=== PATIENT | female | born 2000 | race Caucasian/White ===

== ENCOUNTER 2022-12-02 17:51 | Emergency (ER) | payer OTHER, SELFPAY ==
[2022-12-02 17:55] VITALS: BP 113/72; PULSE 90; RESP 18; TEMP 37.2; O2SAT 99; BMI 25.7
--- NOTE | 2022-12-02 18:05 | PC.NURSE ---
pt points to the lower left back / buttock area, denies pain radiating down left leg
--- NOTE | 2022-12-02 18:06 | ED.BACK1 ---
HPI - Back Pain/Injury General Chief Complaint: Back Pain/Injury Stated Complaint: LOWER BACK PAIN LT SIDE Time Seen by Provider: 12/02/22 18:03 Source: patient Mode of arrival: walk-in History of Present Illness HPI Narrative: 22-year-old female presents for left lower back pain. She's had it for a few days and it doesn't radiate. No dysuria or hematuria or right-sided pain. She doesn't recall any unusual activity and there was no trauma. She's had back issues in the past. She had a muscle relaxer home that she took. Related Data Previous Rx's Medication Instructions Recorded acetaminophen 300 mg-codeine 30 mg 1 tab PO Q6H PRN pain 5 days #20 12/02/22 tablet tabs ibuprofen 800 mg tablet 800 mg PO Q8H PRN pain #20 tabs 12/02/22 methocarbamol 750 mg tablet 750 mg PO Q8H #20 tabs 12/02/22 Allergies Allergy/AdvReac Type Severity Reaction Status Date / Time No Known Drug Allergies Allergy Verified 12/02/22 17:55 Review of Systems ROS Narrative A ten point review of systems is negative except as noted above. Exam Narrative Exam Narrative: Nurses note and vital signs reviewed and patient is not hypoxic. General: The patient appears mildly uncomfortable Skin: Warm, dry, no pallor noted. There is no rash noted including on her back. Head: Normocephalic, atraumatic Eye: Normal conjunctiva, no drainage Ears, Nose, Mouth, and Throat: oral mucosa is moist. Nares patent. Cardiovascular: Regular Rate and Rhythm Respiratory: Patient is in no distress, no accessory muscle use, lungs are clear to auscultation, no wheezing, rales or rhonchi Back: non-tender, no CVA tenderness bilaterally to percussion. GI: soft and nontender Musculoskeletal: The patient has no evidence of calf tenderness, no pitting edema, symmetrical pulses noted bilaterally Neurological: A&O, normal speech Psychiatric: Cooperative Constitutional Vital Signs, click to edit/add: Last Vital Signs Temp 99.0 F 12/02/22 17:55 Pulse 90 12/02/22 17:55 Resp 18 12/02/22 17:55 BP 113/72 12/02/22 17:55 Pulse Ox 99 12/02/22 17:55 O2 Del Method Room Air 12/02/22 18:07 Course Vital Signs Vital signs: Vital Signs Temperature 99.0 F 12/02/22 17:55 Pulse Rate 90 12/02/22 17:55 Respiratory Rate 18 12/02/22 17:55 Blood Pressure 113/72 12/02/22 17:55 Pulse Oximetry 99 12/02/22 17:55 Oxygen Delivery Method Room Air 12/02/22 17:55 Temperature 99.0 F 12/02/22 17:55 Pulse Rate 90 12/02/22 17:55 Respiratory Rate 18 12/02/22 17:55 Blood Pressure 113/72 12/02/22 17:55 Pulse Oximetry 99 12/02/22 17:55 Oxygen Delivery Method Room Air 12/02/22 18:07 MDM - Back Pain/Injury MDM Narrative Medical decision making narrative: she was given IM Toradol and Norflex and seems to be feeling improved. She'll be discharged home and treated symptomatically. Treatment diagnosis and follow-up were discussed with the patient. My clinical impression is that this is muscle pain. X-rays are not indicated. Discharge Plan Discharge Chief Complaint: Back Pain/Injury Clinical Impression: Low back pain Patient Disposition: Home, Self-Care Time of Disposition Decision: 18:39 Condition: Good Mode of Transportation: Private Vehicle Prescriptions / Home Meds: New ibuprofen 800 mg tablet 800 mg PO Q8H PRN (Reason: pain) Qty: 20 0RF methocarbamol 750 mg tablet 750 mg PO Q8H Qty: 20 0RF acetaminophen-codeine 300-30 mg tablet 1 tab PO Q6H PRN (Reason: pain) 5 Days Qty: 20 0RF Instructions: Back Pain (ED) Stand Alone Forms: Portal Instructions Referrals: Vladimir Parnell MD [Primary Care Provider] - 1 week
[2022-12-02] MEDS: KETOROLAC TROMETHAMINE 60 MG/2 ML VIAL IM (18:18)
[2022-12-02] MEDS: ORPHENADRINE 60 MG/ 2 ML VIAL IM (18:19)
== END 2022-12-02 19:01 | disposition home or self-care (01) ==
PROVIDERS: Emergency Provider Emergency Medicine; PCP Family Medicine
DX: M54.50 Low back pain, unspecified (principal)
CPT/HCPCS: 96372; 99284

== ENCOUNTER 2022-12-06 10:29 | Outpatient (OUT) | payer OTHER, SELFPAY ==
--- NOTE | 2022-12-06 10:50 | XR_ITS ---
The [address] [address] Patient Name: MELCHOR VERA MRN: [id number] date: 2000 Sex: F Assigned Patient Location: LAB Current Patient Location: LAB Accession/Order Number: [id number] Exam Date: 12/06/2022 10:57 Report Date: 12/06/2022 13:37 At the request of: RICHMOND STANLEY Procedure: XR lumbar spine 2-3V EXAMINATION: XR lumbar spine 2-3V HISTORY: Lumbar strain S39.012A ; chronic low back pain COMPARISON: No relevant comparison available. FINDINGS: BONES: Suspect pars defects bilaterally at L5. Normal height and alignment of the vertebral bodies. DISC SPACES: Mild/moderate narrowing L5-S1. PARASPINOUS: Negative. No paraspinous abnormality is seen. OTHER: Negative. XR/XR lumbar spine 2-3V IMPRESSION: 1. L5-S1 disc space narrowing and suspected L5 bilateral pars interarticularis defects. No other defects are likely congenital, they can cause irritation. Consider CT or MRI of the lumbar spine for confirmation. Electronically authenticated by: CELINA CARY Date: 12/06/2022 13:37
[2022-12-06 11:24] LABS: Basophils Percent Auto 0.6 % (0.2-2.0); Eosinophils Absolute Auto 0.1 10^3/uL (0.0-0.7); Eosinophils Percent Auto 1.7 % (0.9-7.0); Hematocrit 36.9 % (36.0-48.0); Immature Granulocytes Abs Auto 0.01 10^3/uL (0.00-0.03); Immature Granulocytes Pct Auto 0.2 % (0.0-0.5); Lymphocytes Absolute Auto 1.7 10^3/uL (1.2-3.8); Lymphocytes Percent Auto 36.1 % (20.5-60.0); Mean Corpuscular HGB Conc 32.5 g/dL (29.9-35.2); Mean Corpuscular Hemoglobin 31.3 pg (26.7-34.0); Mean Corpuscular Volume 96.3 fL (81.0-99.0); Mean Platelet Volume 10.5 fL (9.5-13.5); Monocytes Absolute Auto 0.3 10^3/uL (0.3-0.8); Monocytes Percent Auto 7.2 % (1.7-12.0); Neutrophils Absolute Auto 2.6 10^3/uL (1.4-6.5); Neutrophils Percent Auto 54.2 % (43.0-75.0); Platelet Count 174 10^3/uL (150-450); Red Blood Count 3.83 10^6/uL (4.20-5.40); Red Cell Distribution Width 12.2 % (11.0-15.0); White Blood Count 4.7 10^3/uL (4.0-11.0)
[2022-12-06 11:58] LABS: Estimated Average Glucose 85 mg/dL; Glycohemoglobin A1C 4.6 % (4.5-6.2)
[2022-12-06 12:36] LABS: Alanine Aminotransferase 24 U/L (14-59); Albumin Globulin Ratio 1.1; Albumin Level 3.8 g/dL (3.4-5.0); Alkaline Phosphatase 33 U/L (46-116); Anion Gap 11.8; Aspartate Amino Transferase 21 U/L (15-37); BUN Creatinine Ratio 15.9; Bilirubin Total 0.3 mg/dL (0.2-1.0); Calcium 8.5 mg/dL (8.5-10.1); Carbon Dioxide 28.4 mmol/L (21.0-32.0); Chloride 107 mmol/L (98-107); Chol HDL Ratio 3.7; Cholesterol 161 mg/dL (<=200); Estimated GFR (African America >60 (>=60); Estimated GFR (Non-African Ame >60 (>=60); Free T3 2.72 pg/mL (2.18-3.98); Globulin 3.4 g/dL; Glucose 87 mg/dL (74-106); HDL Cholesterol 44 mg/dL (40-60); Potassium 4.2 mmol/L (3.5-5.1); Sodium 143 mmol/L (136-145); Thyroid Stimulating Hormone 2.004 uIU/mL (0.358-3.740); Total Protein 7.2 g/dL (6.4-8.2); Triglycerides 105 mg/dL (<=150)
[2022-12-07 11:09] LABS: Insulin 11.8 uIU/mL (2.6-24.9)
== END 2022-12-06 10:30 | disposition home or self-care (01) ==
LOC: LAB 10:33
PROVIDERS: PCP Family Medicine; Visit Provider Family Medicine
DX: Z00.00 Encounter for general adult medical examination without abnormal findings (principal); S39.012A Strain of muscle, fascia and tendon of lower back, initial encounter; R73.09 Other abnormal glucose; E78.5 Hyperlipidemia, unspecified
CPT/HCPCS: 36415; 72100; 80053; 80061; 83036; 83525; 84436; 84443; 84481; 85025

== ENCOUNTER 2022-12-19 08:25 | Outpatient (OUT) | payer OTHER, SELFPAY ==
--- NOTE | 2022-12-19 08:33 | MR_ITS ---
The [address] [address] Patient Name: MELCHOR VERA MRN: [facility]:[id number] date: 2000 Sex: F Assigned Patient Location: MRI Current Patient Location: MRI Accession/Order Number: [id number] Exam Date: 12/19/2022 09:00 Report Date: 12/19/2022 11:48 At the request of: RICHMOND STANLEY Procedure: MR lumbar spine wo con EXAM: MR lumbar spine without contrast, 12/19/2022. COMPARISON: Lumbar spine x-rays from 12/06/2022. HISTORY: Lumbar spine pain for one month. Possible L5 pars defects on x-rays. TECHNIQUE: Multiplanar and multisequence imaging of the lumbar spine was performed without contrast. FINDINGS: No acute fracture is identified. There is mild disc height loss and disc desiccation at L3-L4 and L4-L5. There is a relatively small disc space at L5-S1 on a congenital basis. No convincing L5 pars defects are identified by MRI. There is no bone marrow edema in the region of the L5 pars interarticularis. No acute abnormality is identified involving visualized intrapelvic or intra-abdominal structures. The visualized aorta is normal in diameter. The upper sacrum is intact. The conus terminates at the superior aspect of T12. L5-S1: There is no focal disc herniation. There is no central or foraminal stenosis. L4-L5: There is a broad-based disc protrusion which is more pronounced in the central and right paracentral region measuring 7 mm in AP dimension. This results in effacement of the thecal sac and mild to moderate central narrowing with the thecal sac measuring 8 mm in AP dimension. There is severe lateral recess narrowing on the right and moderate lateral recess narrowing on the left with minimal foraminal narrowing. L3-L4: There is a broad-based disc protrusion measuring 7 mm in AP dimension resulting in effacement of the thecal sac and mild central narrowing with the thecal sac measuring 9 mm in AP dimension. There is moderate to marked lateral recess narrowing on the right and moderate lateral recess narrowing on the left without significant foraminal stenosis. L2-L3: There is no focal disc herniation. There is no central or foraminal stenosis. L1-L2: There is no focal disc herniation. There is no central or foraminal stenosis. MR/MR lumbar spine wo con IMPRESSION: 1. There is a large broad-based disc protrusion at L4-L5 asymmetric to the right resulting in mild to moderate central narrowing and severe right and moderate left lateral recess narrowing with suspected abutment of the right and possibly left L5 nerve roots. 2. There is also a 7 mm broad-based disc protrusion at L3-L4 resulting in mild central narrowing as well as moderate to marked lateral recess narrowing on the right and moderate lateral recess narrowing on the left. 3. No acute fracture. No convincing L5 pars defects. There is no spondylolisthesis. Electronically authenticated by: MEJIA RAGLAND Date: 12/19/2022 11:48
== END 2022-12-19 08:26 | disposition home or self-care (01) ==
LOC: MRI 08:26
PROVIDERS: PCP Family Medicine; Visit Provider Family Medicine
DX: S39.012A Strain of muscle, fascia and tendon of lower back, initial encounter (principal); M51.26 Other intervertebral disc displacement, lumbar region
CPT/HCPCS: 72148

== ENCOUNTER 2023-05-29 16:05 | Outpatient (OUT) | payer OTHER, SELFPAY ==
--- NOTE | 2023-05-29 16:10 | XR_ITS ---
The [address] [address] Patient Name: MELCHOR VERA MRN: [id number] date: 2000 Sex: F Assigned Patient Location: RAD Current Patient Location: RAD Accession/Order Number: [id number] Exam Date: 05/29/2023 16:12 Report Date: 05/29/2023 16:49 At the request of: RICHMOND STANLEY Procedure: XR chest 2V EXAM: XR chest 2V HISTORY: chest wall pain R07.89 on the left intermittently for the past year. COMPARISON: None. TECHNIQUE: Upright PA and lateral chest x-ray FINDINGS: The heart is not enlarged and the vasculature is not distended. No acute infiltrate, effusion or pneumothorax is identified. The osseous structures are grossly intact. XR/XR chest 2V IMPRESSION: No acute infiltrate or evidence of cardiac decompensation. Direct comparison with a previous study may be helpful in determining the chronicity of these findings. Electronically authenticated by: ALEXANDRE BUI Date: 05/29/2023 16:49
== END 2023-05-29 16:06 | disposition home or self-care (01) ==
LOC: RAD 16:06
PROVIDERS: PCP Family Medicine; Visit Provider Family Medicine
DX: R07.89 Other chest pain (principal)
CPT/HCPCS: 71046

== ENCOUNTER 2023-11-18 20:34 | Outpatient (REF) | payer OTHER, SELFPAY ==
[2023-11-22 08:13] LABS: Age Gdln ACOG Testing Note (.); IGP, rfx Aptima HPV ASCU Note (.)
== END 2023-11-18 20:35 | disposition home or self-care (01) ==
LOC: LAB 20:34
PROVIDERS: PCP Family Medicine; Visit Provider Physician Assistant
DX: Z01.419 Encounter for gynecological examination (general) (routine) without abnormal findings (principal)
CPT/HCPCS: 88175

== ENCOUNTER 2023-12-13 07:17 | Outpatient (OUT) | payer OTHER, SELFPAY ==
--- OUTSIDE RECORDS SUMMARY | 2023-12-13 07:20 | XMS_ITS | CCD ---
Author Organization [facility] Care Team Providers Care Iron Cutter Name Role Phone PHYSICIAN, DEFAULT Admitting Unavailable PHYSICIAN, DEFAULT Attending Unavailable PHYSICIAN, DEFAULT Admitting Unavailable PHYSICIAN, DEFAULT Attending Unavailable JADEN, DR FRAGOSO Primary Care Unavailable ERICH, DR CLEVELAND Consulting Unavailable ERICH, DR CLEVELAND Admitting Unavailable ERICH, DR CLEVELAND Attending Unavailable RICHMOND PARNELL Referring Unavailable ANURADHA FINK Attending Unavailable KYLE, RACHEL Attending Unavailable Problems Active Problems Problem Classification Problem Date Documented Da te Episodic/Chronic Unclassified (2 sources) COUGH, UNSPECIFIED; Translations: [COUGH, UNSPECIFIED] Onset: 04-03-2021 Unclassified (1 source) CONTACT W/AND (SUSP) EXPOS COVID-19; Translations: [CONTACT W/AND (SUSP) EXPOS COVID-19] Onset: 04-03-2021 Past or Other Problems Problem Classification Problem Date Documented Da te Episodic/Chronic Other upper respiratory infections (1 source) Acute upper respiratory infection, unspecified; Translations: [ACUTE UP RESPIRATORY INFECTION UNS] Onset: 04-03-2021 Episodic Unclassified (1 source) COUGH, UNSPECIFIED; Translations: [COUGH, UNSPECIFIED] Onset: 03-29-2021 Results Test Name Value Interpretation Reference Range Facil itlucinda CNOVon 02-27-2023 CNOV Office Visit (SPMESH ) JANNIE GU Nolan ([id number]) 4 F Date Time Provider Department 02/27/23 8:00 AM ANURADHA FINK SPMESH During your visit today, we recorded the following information about you: Temperature Pulse Blood pressure Weight 99.5 degrees 81/minute 104/67 81.5 kg Anuradha Fink, 03/27/2023 7:39 AM Signed [facility] - Medical Spine Initial Exam SUBJECTIVE HISTORY OF PRESENT ILLNESS: Jannie Gu is a 22 year old female who presents with a chief complaint of low back pain and is seen in consultation requested by Dr. Richmond Parnell for an opinion regarding low back pain. My final recommendations will be communicated back to the requesting physician by way of shared medical record or letter via US mail. Pain first began 5-6 years ago from not lifting properly she thinks. With 2 months of worsening without precipitating event. Overall some days better than others. Went to ER - lower left side of back, sharp pain. ([facility] 12/06/22). Now pain is up and down thoracolumbar spine midline and bilateral described as dull-aching, up to mid thoracic/scapula level worse on left. The worst pain is midline from thoracolumbar to lumbosacral region. Denies radicular component Occasionally will have to sit down because she feels like she's going to fall. Stating legs can get weak. Usually when upright. Intermittently. Improved with sitting. Denies numbness/tingling. Denies bowel/bladder incontinence or saddle anesthesia. The pain is currently 6-7/10. The pain can get to 9-10/10 at the highest and 2-3/10 at the lowest. Pain Radiation: As above Aggravating Factors: Bending + lifting, twisting, sometimes walking or standing for too long or sitting for too long Alleviating Factors: Stretching, heating pad Pain Ratio: worst pain is midline from thoracolumbar to lumbosacral region Current Treatment: Medications Intermittently Tizanidine - was working better than robaxin Diclofenac daily, previously ibuprofen 800mg Tylenol #3 - once or twice a week depending on pain intensity. 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 Higher percentile rankings indicate better function/quality of life. 50th percentile is the average of the general population and indicates half of respondents had a worse score. Depression Screening: PHQ-9 Self-Harm (Item 9) response options: 0 Not at all 1 Several days 2 More than half the days 3 Nearly every day PHQ-9 Levels: 0-4 No - mild depression 5-9 Mild depression 10-14 Moderate depression 15-19 Moderately severe depression 20-27 Severe depression There is no problem list on file for this patient. No past medical history on file. No past surgical history on file. Social History Tobacco Use Smoking status: Never Smokeless tobacco: Never Substance Use Topics Alcohol use: Not Currently No family history on file. ALLERGIES No Known Allergies CURRENT MEDICATIONS: acetaminophen-codeine (TYLENOL-COD #3) 300-30 mg per tablet TAKE 1 TABLET BY MOUTH EVERY 6 HOURS FOR 5 DAYS NEEDED FOR PAIN diclofenac, EC, (VOLTAREN) 75 mg EC tablet Take 1 tablet by mouth every 12 hours. ibuprofen (MOTRIN) 800 mg tablet Take 800 mg by mouth every 8 hours as needed. BLISOVI FE 03/30, 28, 1 mg-20 mcg (21)/75 mg (7) per tablet Take 1 tablet by mouth every morning. methocarbamol (ROBAXIN) 750 mg tablet Take 750 mg by mouth. tiZANidine (ZANAFLEX) 4 mg tablet Take 8 mg by mouth daily at bedtime. REVIEW OF SYSTEMS: 14 systems reviewed and otherwise negative unless mentioned above. OBJECTIVE: PHYSICAL EXAM BP 104/67 Pulse 81 Temp 37.5 ?C (99.5 ?F) (Temporal) Wt 81.5 kg (179 lb 10.8 oz) SpO2 100% GENERAL APPEARANCE: Well nourished, well developed, and no apparent distress. NEURO PSYCH: Patient oriented to person, place, and time. Mood pleasant. Benign affect. CARDIOVASCULAR: Palpable pulses. No edema noted. RESPIRATORY: non-labored breathing, no grunting/flaring/retra ctions (more content not included)... Normal [facility] CULTURE THROATon 03-29-2021 CULTURE THROAT Isolate 1 Haemophilus influenzae Moderate growth of Normal [facility] Comment on above: Result Comment: Beta lactamase positive Performed By: #### S SCRN, THRTCX #### [facility] [address], [place] [address] Dr. Denise Ernandez Covid-19 PCR (CVDTB)on 03-11 SARS-CoV-2 (COVID-19) RNA CAROL+probe Ql (Unsp spec) Not detected Normal NOT DETECTED [facility] Comment on above: Result Comment: This test is not yet gonzález roved or cleared by the [place] FDA. When there are no FDA-approved or cleared tests available, and other criteria are met, FDA can make tests available under an emergency access mechanism called an Emergency Use Authorization (EUA). The EUA for this test is supported by the Legal Coordinator of Health and Human Service's (HHS's) declaration that circumstances exist to justify the emergency use of in vitro diagnostics for the detection and/or diagnosis of the virus that causes COVID-19. This EUA will remain in effect (meaning this test can be used) for the duration of the COVID-19 declaration justifying emergency of IVDs, unless it is terminated or revoked by FDA (after which the test may no longer be used). When diagnostic testing is negative, the possibility of a false negative should be considered in the context of a patient's recent exposures and the presence of clinical signs and symptoms consistent with SARS-CoV-2. Performed By: #### C VDTBH #### [facility] [address], [place] [address] Dr. Denise Ernandez STREPT SCREENon 03-29-2021 STREP SCREEN A Negative Normal NEGATIVE [facility] Comment on above: Performed By: #### SSCRN, THRTCX #### [facility] [address], [place] [address] Dr. Denise Ernandez Encounters Encounter Date Encounter Type Care Provider Facility Start: 11-18-2023 End: 11-18-2023 ambulatory RACHEL WRIGHT Not Available Start: 02-27-2023 End: 02-27-2023 ambulatory RICHMOND PARNELL Facility:[facility] Start: 03-29-2021 End: 03-29-[address] RICHMOND PARNELL Facility: Start: 06-19-2018 End: 06-20-2018 Patient encounter procedure DEFAULT PHYSICIAN Facility:[facility] Start: 06-17-2018 End: 06-18-2018 Patient encounter procedure DEFAULT PHYSICIAN Facility:[facility] Payers Date Payer Category Payer Unknown [id number] 2002 Unknown [id number] 2002 Unknown [id number] 2002 Unknown [id number] 1965 Unknown [id number] 1959 Private Health Insurance [id number] 1959 Unknown [id number] Unknown Progress note 02-27-2023 Note Date & Type Note Facility 02-27-2023 Note HNO ID: [id number] Author: ANURADHA FINK, DO Service: ? Author Type: Physician Type: Progress Notes Filed: 03/27/2023 07:39 Note Text: [facility] - Medical Spine Initial Exam SUBJECTIVE HISTORY OF PRESENT ILLNESS: Jannie Gu is a 22 year old female who presents with a chief complaint of low back pain and is seen in consultation requested by Dr. Richmond Parnell for an opinion regarding low back pain. My final recommendations will be communicated back to the requesting physician by way of shared medical record or letter via US mail. Pain first began 5-6 years ago from not lifting properly she thinks. With 2 months of worsening without precipitating event. Overall some days better than others. Went to ER - lower left side of back, sharp pain. ([facility] 12/06/22). Now pain is up and down thoracolumbar spine midline and bilateral described as dull-aching, up to mid thoracic/scapula level worse on left. The worst pain is midline from thoracolumbar to lumbosacral region. Denies radicular component Occasionally will have to sit down because she feels like she's going to fall. Stating legs can get weak. Usually when upright. Intermittently. Improved with sitting. Denies numbness/tingling. Denies bowel/bladder incontinence or saddle anesthesia. The pain is currently 6-7/10. The pain can get to 9-10/10 at the highest and 2-3/10 at the lowest. Pain Radiation: As above Aggravating Factors: Bending + lifting, twisting, sometimes walking or standing for too long or sitting for too long Alleviating Factors: Stretching, heating pad Pain Ratio: worst pain is midline from thoracolumbar to lumbosacral region Current Treatment: Medications Intermittently Tizanidine - was working better than robaxin Diclofenac daily, previously ibuprofen 800mg Tylenol #3 - once or twice a week depending on pain intensity. 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 Higher percentile rankings indicate better function/quality of life. 50th percentile is the average of the general population and indicates half of respondents had a worse score. Depression Screening: PHQ-9 Self-Harm (Item 9) response options: 0 Not at all 1 Several days 2 More than half the days 3 Nearly every day PHQ-9 Levels: 0-4 No - mild depression 5-9 Mild depression 10-14 Moderate depression 15-19 Moderately severe depression 20-27 Severe depression There is no problem list on file for this patient. No past medical history on file. No past surgical history on file. Social History Tobacco Use Smoking status: Never Smokeless tobacco: Never Substance Use Topics Alcohol use: Not Currently No family history on file. ALLERGIES No Known Allergies CURRENT MEDICATIONS: acetaminophen-codeine (TYLENOL-COD #3) 300-30 mg per tablet TAKE 1 TABLET BY MOUTH EVERY 6 HOURS FOR 5 DAYS NEEDED FOR PAIN diclofenac, EC, (VOLTAREN) 75 mg EC tablet Take 1 tablet by mouth every 12 hours. ibuprofen (MOTRIN) 800 mg tablet Take 800 mg by mouth every 8 hours as needed. BLISOVI FE 03/30, 28, 1 mg-20 mcg (21)/75 mg (7) per tablet Take 1 tablet by mouth every morning. methocarbamol (ROBAXIN) 750 mg tablet Take 750 mg by mouth. tiZANidine (ZANAFLEX) 4 mg tablet Take 8 mg by mouth daily at bedtime. REVIEW OF SYSTEMS: 14 systems reviewed and otherwise negative unless mentioned above. OBJECTIVE: PHYSICAL EXAM BP 104/67 Pulse 81 Temp 37.5 ?C (99.5 ?F) (Temporal) Wt 81.5 kg (179 lb 10.8 oz) SpO2 100% GENERAL APPEARANCE: Well nourished, well developed, and no apparent distress. NEURO PSYCH: Patient oriented to person, place, and time. Mood pleasant. Benign affect. CARDIOVASCULAR: Palpable pulses. No edema noted. RESPIRATORY: non-labored breathing, no grunting/flaring/retractions SKIN: Head, neck, trunk, and extremities dry, intact and without lesions. MUSCULOSKELETAL VISUAL INSPECTION Posture: normal posture and alignment PALPATION: No tenderness to palpation thoracic/lumbar spine SPINE ROM: LUMBAR ROM: Full ROM Without Pain CERVICAL (more content not included)... [facility] Progress note 01-23-2023 Note Date & Type Note Facility 01-23-2023 Note HNO ID: [id number] Author: Chayito Hinton PA-C Service: ? Author Type: Physician Link Trainer Mechanic Type: Progress Notes Filed: 01/23/2023 9:52 PM Note Text: Per Triage: Jannie Gu is a 22 year old female that requests evaluation of spine. Per review, they have symptoms of lower back pain, mid back pain. Difficulty walking. Weakness Request: 1st available Referring provider: Richmond Parnell Patient out of state: no 2nd opinion: no Prior spine surgery: no CMT: Diclofenac Tizanidine Studies (Reports unless indicated) MRI lumbar spine report 12/19/22: Large broad-based disc herniation at L4-5,asymmetric to the right resulting in mild to moderate central canal stenosis and severe right and moderate left lateral recess stenosis. 7 mm broad-based disc protrusion at L3-4 resulting in mild central narrowing and well as marked lateral recess stenosis on the right and moderate on the left Disposition: Based on triage, recommend patient be scheduled with medical spine interventionalist for a trial of spine injections,PT, membrane stabilizer If patient would like sooner appointment, is it okay to offer appointment with spine surgical GONZÁLEZ No (If patient is okay to see first available surgeon, please specify dx to aid in appropriate scheduling, such as ?cervical degenerative disease,? ?scoliosis?) If VV, please advise pt to send or upload relevant outside images prior to appt so they will be available for review during the appt If office visit, please advise pt to hand carry relevant images on CD to the appt so they can be reviewed during the appt Chayito Hinton PA-C [facility] Progress note 01-22-2023 Note Date & Type Note Facility 01-22-2023 Note HNO ID: [id number] Author: Jone Martin Service: ? Author Type: ? Type: Progress Notes Filed: 01/23/2023 9:52 PM Note Text: Patient name: Jannie Gu Are you being referred by a [facility] Provider or Pain Management Provider at [facility]? No If answer is YES please schedule directly with surgeon, triage does not need to be completed. Is this a self-referral No If not, who is the Referring Provider Richmond Parnell Is this a 2nd opinion? No Were you offered surgery? No MRI/CT/myelogram within 12 months? Yes If NO , please refer to medical spine or PCP to complete above imaging, triage does not need to be completed If YES,? please ask for the name/address of the facility where the MRI/CT/myelogram was completed: [facility] Address: [address] [place] [address] MRI/CT/myelogram viewable in Epic: No If not, please provide [phone] to fax in imaging reports for review. Also, please inform patient to hand carry imaging disc to appointment. XR (spine) within 12 months: Yes If YES,? please ask for the name/address of the facility where the XR was completed: Same Dr. [place]'s patients: Have you had previous EMG/Nerve Conduction Study, Ultrasound, or MRI for these same symptoms? If YES,? please ask for the name/address of the facility where they were completed: Requested provider (First and Last name): [facility] Are you interested in a virtual visit if offered? No 1. Where are you having symptoms related to this visit? LBP Mid back pain Back pain Yes Leg pain No Arm pain No Neck pain No 2. Are you having any of the following symptoms: Difficulty walking Yes some weakness on occasion Numbness No Weakness Yes Trouble using your hands? No 3. Have you had any injections or physical therapy in the last 12 months? No If YES then please ask for the name/address of the facility where the injections and/or physical therapy was completed Have you tried any other kinds of non-surgical treatments in the last 12 months? (For example: NSAIDS, muscle relaxants, analgesics, oral steroids, Chiropractor, Acupuncture): Diclofenac Tizanidine 4. Are you currently taking daily prescribed narcotic medications for your current symptoms (For example Oxycodone, Hydrocodone, Tramadol, Morphine, Other)? No 5. Have you had previous spinal surgery for this same symptoms? No If YES? please ask for the name of facility/address of where the surgery was completed: Additional Comments [facility] Summary Purpose Family History No Family History Records FoundNo Family History Records FoundNo Family History Records FoundNo Family History Records Found Advance Directives No Advanced Directives Records FoundNo Advanced Directives Records FoundNo Advanced Directives Records FoundNo Advanced Directives Records Found Additional Source Comments INFORMATION SOURCE (unrecogn ized section and content) DATE CREATED AUTHOR 06/20/2018 [facility] DATE CREATED AUTHOR AUTHOR'S ORGANIZ ATION 08/23/2021 [facility] DATE CREATED AUTHOR AUTHOR'S ORGANIZ ATION 03/28/2023 [facility] DATE CREATED AUTHOR AUTHOR'S ORGANIZ ATION 11/19/[address] [facility] EPIC FOR RECORDS PERTAINING TO PATIENTS WHO ARE OR HAVE BEEN ENROLLED IN A CHEMICAL DEPENDENCY/SUBSTANCEABUSE PROGRAM, SOME INFORMATION MAY BE OMITTED. This clinical summary was aggregated from multiple sources. Caution should be exercised in using it in the provision of clinical care. This summary normalizes information from multiple sources, and as a consequence, information in this document may materially change the coding, format and clinical context of patient data. In addition, data may be omitted in some cases. CLINICAL DECISIONS SHOULD BE BASED ON THE PRIMARY CLINICAL RECORDS. [facility] provides no warranty or guarantee of the accuracy or completeness of information in this document.
[2023-12-13 07:36] LABS: Basophils Percent Auto 0.4 % (0.2-2.0); Eosinophils Percent Auto 0.7 % (0.9-7.0); Hematocrit 36.1 % (36.0-48.0); Hemoglobin 12.1 g/dL (12.0-16.0); Immature Granulocytes Abs Auto 0.01 10^3/uL (0.00-0.03); Immature Granulocytes Pct Auto 0.2 % (0.0-0.5); Lymphocytes Absolute Auto 1.5 10^3/uL (1.2-3.8); Lymphocytes Percent Auto 27.5 % (20.5-60.0); Mean Corpuscular HGB Conc 33.5 g/dL (29.9-35.2); Mean Corpuscular Hemoglobin 31.2 pg (26.7-34.0); Mean Platelet Volume 9.6 fL (9.5-13.5); Monocytes Absolute Auto 0.2 10^3/uL (0.3-0.8); Monocytes Percent Auto 4.1 % (1.7-12.0); Neutrophils Absolute Auto 3.8 10^3/uL (1.4-6.5); Neutrophils Percent Auto 67.1 % (43.0-75.0); Platelet Count 217 10^3/uL (150-450); Red Blood Count 3.88 10^6/uL (4.20-5.40); Red Cell Distribution Width 12.3 % (11.0-15.0); White Blood Count 5.6 10^3/uL (4.0-11.0)
[2023-12-13 08:25] LABS: Estimated Average Glucose 100 mg/dL; Glycohemoglobin A1C 5.1 % (4.5-6.2)
[2023-12-13 08:37] LABS: Alanine Aminotransferase 50 U/L (14-59); Albumin Globulin Ratio 1.1; Albumin Level 3.5 g/dL (3.4-5.0); Alkaline Phosphatase 54 U/L (46-116); Aspartate Amino Transferase 24 U/L (15-37); BUN Creatinine Ratio 17.3; Bilirubin Total 0.2 mg/dL (0.2-1.0); Calcium 8.7 mg/dL (8.5-10.1); Chloride 105 mmol/L (98-107); Chol HDL Ratio 3.1; Cholesterol 170 mg/dL (<=200); Estimated GFR (African America >60 (>=60 mL/min/1.73m^2); Estimated GFR (Non-African Ame >60 (>=60 mL/min/1.73m^2); Free T3 2.47 pg/mL (2.18-3.98); Globulin 3.1 g/dL; Glucose 105 mg/dL (74-106); HDL Cholesterol 55 mg/dL (40-60); LDL Cholesterol Calculated 96.8 mg/dL; Potassium 3.5 mmol/L (3.5-5.1); Sodium 138 mmol/L (136-145); Thyroid Stimulating Hormone 0.922 uIU/mL (0.358-3.740); Total Protein 6.6 g/dL (6.4-8.2); Triglycerides 91 mg/dL (<=150); VLDL CHOLESTEROL 18.2 mg/dL
[2023-12-13 08:57] LABS: Anion Gap 14.4; Carbon Dioxide 22.1 mmol/L (21.0-32.0)
[2023-12-14 08:13] LABS: Insulin 14.6 uIU/mL (2.6-24.9)
== END 2023-12-13 07:18 | disposition home or self-care (01) ==
LOC: LAB 07:18
PROVIDERS: PCP Family Medicine; Visit Provider Family Medicine
DX: Z00.00 Encounter for general adult medical examination without abnormal findings (principal)
CPT/HCPCS: 36415; 80053; 80061; 83036; 83525; 83540; 84436; 84443; 84481; 85025

== ENCOUNTER 2023-12-13 12:30 | Outpatient (OUT) | payer OTHER, SELFPAY ==
--- OUTSIDE RECORDS SUMMARY | 2023-12-13 12:32 | XMS_ITS | CCD ---
Author Organization [facility] Care Team Providers Care Call Center Professional Name Role Phone PHYSICIAN, DEFAULT Admitting Unavailable [...] Test Name Value Interpretation Reference Range Facil itluicnda CNOVon 02-27-2023 CNOV Office Visit (SPMESH ) JANNIE GU Nolan ([id number]) 4 F Date Time Provider Department 02/27/23 8:00 AM ANURADHA FINK SPMESH During your visit today, we recorded the following information about you: Temperature Pulse Blood pressure Weight 99.5 degrees 81/minute 104/67 81.5 kg Anuradha Fink, 03/27/2023 7:39 AM Signed [facility] for Spine Health - Medical Spine Initial [...] lower left side of back, sharp pain. ([facility] 12/06/22). Now pain is up and down [...] grunting/flaring/retra ctions (more content not included)... Normal [facility] CULTURE THROATon 03-29-2021 CULTURE THROAT Isolate 1 Haemophilus influenzae Moderate growth of Normal The [facility] Comment on above: Result Comment: Beta lactamase positive Performed By: #### S SCRN, THRTCX #### [facility] [address] [place], [place] [address] Dr. Denise Ernandez Covid-19 PCR (CVDTB)on 03-11 SARS-CoV-2 (COVID-19) RNA CAROL+probe Ql (Unsp spec) Not detected Normal NOT DETECTED [facility] Comment on above: Result Comment: This test is not yet gonzález roved or cleared by the [place] FDA. When there are no FDA-approved or cleared tests available, and other criteria are met, FDA can make tests available under an emergency access mechanism called an Emergency Use Authorization (EUA). The EUA for this test is supported by the Refrigeration Operator of Health and Human Service's (HHS's) declaration [...] SARS-CoV-2. Performed By: #### C VDTBH #### [facility] [address] [place], [place] [address] Dr. Denise Ernandez STREPT SCREENon 03-29-2021 STREP SCREEN A Negative Normal NEGATIVE The [facility] Comment on above: Performed By: #### SSCRN, THRTCX #### [facility] [address], [place] [address] Dr. Denise Ernandez Encounters Encounter Date Encounter Type Care Provider Facility Start: 11-18-2023 End: 11-18-2023 ambulatory RACHEL WRIGHT Not Available Start: 02-27-2023 End: 02-27-2023 ambulatory RICHMOND PARNELL Facility:[facility] Start: 03-29-2021 End: 03-29-[address] RICHMOND PARNELL Facility: Start: 06-19-2018 End: 06-20-2018 Patient encounter procedure DEFAULT PHYSICIAN Facility:[facility] Start: 06-17-2018 End: 06-18-2018 Patient encounter procedure DEFAULT PHYSICIAN Facility:[facility] Payers Date Payer Category Payer Unknown [id number] 2002 Unknown [id number] [id number] 2002 Unknown [id number] [id number] 2002 Unknown [id number] [id number] [id number] 1965 Unknown [id number] [id number] 1959 Private Health Insurance [id number] 1959 Unknown [id number] Unknown Progress note 02-27-2023 Note Date & Type Note Facility 02-27-2023 Note HNO ID: [id number] Author: ANURADHA FINK, DO Service: ? Author Type: Physician Type: Progress Notes Filed: 03/27/2023 07:39 Note Text: [facility] for Spine Health - Medical Spine Initial [...] lower left side of back, sharp pain. ([facility] 12/06/22). Now pain is up and down [...] Without Pain CERVICAL (more content not included)... [facility] Progress note 01-23-2023 Note Date & Type Note Facility 01-23-2023 Note HNO ID: [id number] Author: Chayito Hinton PA-C Service: ? Author Type: Physician Platform Stapler Type: Progress Notes Filed: 01/23/2023 9:52 PM [...] reviewed during the appt Chayito Hinton PA-C [facility] Progress note 01-22-2023 Note Date & Type Note Facility 01-22-2023 Note HNO ID: [id number] Author: Jone Martin Service: ? Author Type: ? Type: Progress Notes Filed: 01/23/2023 9:52 PM Note Text: Patient name: Jannie Gu Are you being referred by a Center for Spine Health Provider or Pain Management Provider at [facility]? No If answer is YES please schedule [...] the facility where the MRI/CT/myelogram was completed: [facility] Address: [address] [place] [address] MRI/CT/myelogram viewable in Epic: No If not, please provide [phone] to fax in imaging reports for review. [...] where the surgery was completed: Additional Comments [facility] Summary Purpose Family History No Family History Records FoundNo Family History Records FoundNo Family History Records FoundNo Family History Records Found Advance Directives No Advanced Directives Records FoundNo Advanced Directives Records FoundNo Advanced Directives Records FoundNo Advanced Directives Records Found Additional Source Comments INFORMATION SOURCE (unrecogn ized section and content) DATE CREATED AUTHOR 06/20/2018 [facility] DATE CREATED AUTHOR AUTHOR'S ORGANIZ ATION 08/23/2021 [facility] DATE CREATED AUTHOR AUTHOR'S ORGANIZ ATION 03/28/2023 [facility] DATE CREATED AUTHOR AUTHOR'S ORGANIZ ATION 11/19/2023 [facility] EPIC FOR RECORDS PERTAINING TO [...] BE BASED ON THE PRIMARY CLINICAL RECORDS. [facility]. provides no warranty or guarantee of the accuracy or completeness of information in this document.
--- NOTE | 2023-12-13 13:00 | CA_ITS ---
Patient Name: MELCHOR VERA MR#: [id number] : 2000 Exam Date: 12/13/2023 Ordering Doctor: DR Vladimir Parnell . ECHOCARDIOGRAM REPORT PROCEDURE: CA ECHO DOPPLER COMPLETE INDICATIONS: Near syncope, vape COMPARISON: None. DESCRIPTION: COMPLETE ECHOCARDIOGRAM Real-time transthoracic echocardiography with 2D, M-mode, spectral and color flow Doppler performed. QUALITY: Technical quality was good. LEFT VENTRICLE: Normal chamber size. Normal left ventricular wall thickness. Normal systolic function. LV EF: Normal left ventricular ejection fraction, (>55%). DIASTOLIC: Normal diastolic function. ATRIAL SEPTUM: Visually appears intact. LEFT ATRIUM: Normal chamber size. RIGHT ATRIUM: Normal chamber size. RIGHT VENTRICLE: Normal chamber size. Normal right ventricular systolic function. TRICUSPID VALVE: Normal mobility and thickness. Trivial regurgitation. No evidence of pulmonary hypertension. MITRAL VALVE: Normal mobility and thickness. There is no mitral annular calcification. Trivial mitral regurgitation. AORTIC VALVE: Normal trileaflet appearance. No visible sclerosis. Normal leaflet mobility. No aortic regurgitation. AORTIC ROOT: Normal diameter and appearance. Ascending aorta is normal in size. PULMONIC VALVE: Normal thickness and mobility. Trivial regurgitation. PERICARDIUM: No evidence of pericardial effusion. IVC: Collapses with inspirations. PLEURA: CONCLUSION: 1. Normal ventricular size and function. LVEF is estimated at 60 to 65%. 2. Normal valvular function. 3. No pericardial effusion. Adult Echocardiography Procedure Report Left Ventricle LVEDD (3.7 - 5.6 cm): 4.04 cm LVESD (2.2 - 4.0 cm): 2.65 cm LVIVS thickness (0.6 - 1.2 cm): 0.79 cm LVPW thickness (0.5 - 1.0 cm): 0.76 cm e': 0.22 m/s E - e': 4.87 LVOT Max Gradient: 7.15 mm[Hg] LVOT Area (cm2): 1.34 m/s Peak Velocity (LVOT): 1.34 m/s Mean Velocity (LVOT): 0.84 m/s LVOT Diameter 2.13 cm Left Atrium LA Volume Index (2D A2C): 20.67 ml/m2 Left Atrium Systolic Dimension: 3.08 cm Mitral Valve MV E to A Ratio: 2.77 Mitral Valve A-Wave Peak Velocity: 0.39 m/s Mitral Valve E-Wave Peak Velocity: 1.07 m/s Right Ventricle Aorta AO Root Diam: 2.63 cm Ascending Ao Diam: 2.23 cm Aortic Valve AoV Area (Peak Jh): 3.66 cm2, 3.66 cm2 AoV Area (VTI): 3.43 cm2, 3.43 cm2 Peak Velocity(Antegrade Flow): 1.30 m/s Peak Gradient(Antegrade Flow): 6.77 mm[Hg] Mean Velocity(Antegrade Flow): 0.83 m/s Mean Gradient(Antegrade Flow): 3.33 mm[Hg] Velocity Time Integral: 25.19 cm Tricuspid Valve Peak Velocity (Regurgitant Flow): 1.81 m/s Pulmonic Valve Mean Gradient: 3.59 mm[Hg], 3.79 mm[Hg], 4.31 mm[Hg], 4.02 mm[Hg] Mean Velocity: 0.87 m/s, 0.91 m/s, 0.97 m/s, 0.94 m/s Peak Gradient: 7.03 mm[Hg], 7.03 mm[Hg], 7.03 mm[Hg], 7.03 mm[Hg] Right Atrium Right Atrium Systolic Pressure: 29.55 ml, 29.55 ml Dictated by: Chin Avitia M.D. on 12/13/2023 at 16:19 Approved by: Chin Avitia M.D. on 12/13/2023 at 16:22
== END 2023-12-13 12:31 | disposition home or self-care (01) ==
LOC: CARD 12:30
PROVIDERS: PCP Family Medicine; Visit Provider Family Medicine
DX: Z00.00 Encounter for general adult medical examination without abnormal findings (principal); R55 Syncope and collapse
CPT/HCPCS: 36415; 80053; 80061; 83036; 83525; 83540; 84436; 84443; 84481; 85025; 93306

== ENCOUNTER 2023-12-24 15:26 | Outpatient (OUT) | payer OTHER, SELFPAY ==
--- OUTSIDE RECORDS SUMMARY | 2023-12-24 15:30 | XMS_ITS | CCD ---
Author Organization [facility] CliniSyde Care Team Providers Care Impregnator And Drier Helper Name Role Phone PHYSICIAN, DEFAULT Admitting Unavailable [...] Office Visit (SPMESH ) JANNIE GU Nolan ([id number]) 4 F Date Time Provider Department 02/27/23 8:00 AM ANURADHA FINK SPMESH During your visit today, we recorded the following information about you: Temperature Pulse Blood pressure Weight 99.5 degrees 81/minute 104/67 81.5 kg Anuradha Fink, 03/27/2023 7:39 AM Signed [facility] for Spine Health - Medical [...] lower left side of back, sharp pain. ([facility] 12/06/22). Now pain is up and down [...] grunting/flaring/retra ctions (more content not included)... Normal [facility] CULTURE THROATon 03-29-2021 CULTURE THROAT Isolate 1 Haemophilus influenzae Moderate growth of Normal The [facility] Comment on above: Result Comment: Beta lactamase positive Performed By: #### S SCRN, THRTCX #### [facility] [address] [place], [place] [address] Dr. Denise Ernandez Covid-19 PCR (CVDTB)on 03-11 SARS-CoV-2 (COVID-19) RNA CAROL+probe Ql (Unsp spec) Not detected Normal NOT DETECTED [facility] Comment on above: Result Comment: This test is not yet gonzález roved or cleared by the [place] FDA. When there are no FDA-approved or cleared tests available, and other criteria are met, FDA can make tests available under an emergency access mechanism called an Emergency Use Authorization (EUA). The EUA for this test is supported by the Clinical Staff Educator of Health and Human Service's (HHS's) declaration [...] SARS-CoV-2. Performed By: #### C VDTBH #### [facility] [address] [place], [place] [address] Dr. Denise Ernandez STREPT SCREENon 03-29-2021 STREP SCREEN A Negative Normal NEGATIVE The [facility] Comment on above: Performed By: #### SSCRN, THRTCX #### [facility] [address] [place], [place] [address] Dr. Denise Ernandez Encounters Encounter Date Encounter Type Care Provider Facility Start: 11-18-2023 End: 11-18-2023 ambulatory RACHEL WRIGHT Not Available Start: 02-27-2023 End: 02-27-2023 ambulatory RICHMOND PARNELL Facility:[facility] Start: 03-29-2021 End: 03-29-[address] RICHMOND PARNELL Facility: Start: 06-19-2018 End: 06-20-2018 Patient encounter procedure DEFAULT PHYSICIAN Facility:[facility] Start: 06-17-2018 End: 06-18-2018 Patient encounter procedure DEFAULT PHYSICIAN Facility:[facility] Payers Date Payer Category Payer Unknown [id number] 2002 Unknown [id number] [id number] [id number] 2002 Unknown [id number] [id number] [id number] 2002 Unknown [id number] 1965 Unknown [id number] 1959 Private Health Insurance [id number] 1959 Unknown [id number] Unknown Progress note 02-27-2023 Note Date & Type Note Facility 02-27-2023 Note HNO ID: [id number] Author: ANURADHA FINK, DO Service: ? Author Type: Physician Type: Progress Notes Filed: 03/27/2023 07:39 Note Text: [facility] for Spine Health - Medical Spine Initial [...] lower left side of back, sharp pain. ([facility] 12/06/22). Now pain is up and down [...] Without Pain CERVICAL (more content not included)... [facility] Progress note 01-23-2023 Note Date & Type Note Facility 01-23-2023 Note HNO ID: [id number] Author: Chayito Hinton PA-C Service: ? Author Type: Physician Photographer Assistant Type: Progress Notes Filed: 01/23/2023 9:52 PM [...] reviewed during the appt Chayito Hinton PA-C [facility] Progress note 01-22-2023 Note Date & Type Note Facility 01-22-2023 Note HNO ID: [id number] Author: Jone Martin Service: ? Author Type: ? Type: Progress Notes Filed: 01/23/2023 9:52 PM Note Text: Patient name: Jannie Gu Are you being referred by a Center for Spine Health Provider or Pain Management Provider at [facility]? No If answer is YES please schedule [...] the facility where the MRI/CT/myelogram was completed: [facility] Address: [address] [place] [address] MRI/CT/myelogram viewable in Epic: No If not, please provide [phone] to fax in imaging reports for review. [...] where the surgery was completed: Additional Comments [facility] Summary Purpose Family History No Family History Records FoundNo Family History Records FoundNo Family History Records FoundNo Family History Records Found Advance Directives No Advanced Directives Records FoundNo Advanced Directives Records FoundNo Advanced Directives Records FoundNo Advanced Directives Records Found Additional Source Comments INFORMATION SOURCE (unrecogn ized section and content) DATE CREATED AUTHOR 06/20/2018 [facility] DATE CREATED AUTHOR AUTHOR'S ORGANIZ ATION 08/23/2021 [facility] DATE CREATED AUTHOR AUTHOR'S ORGANIZ ATION 03/28/2023 [facility] DATE CREATED AUTHOR AUTHOR'S ORGANIZ ATION 11/19/2023 [facility] EPIC FOR RECORDS PERTAINING TO [...] BE BASED ON THE PRIMARY CLINICAL RECORDS. [facility]. provides no warranty or guarantee of the accuracy or completeness of information in this document.
== END 2023-12-24 15:27 | disposition home or self-care (01) ==
LOC: MN 15:28
PROVIDERS: PCP Family Medicine
DX: F31.9 Bipolar disorder, unspecified (principal); Z71.3 Dietary counseling and surveillance
CPT/HCPCS: 97802

== ENCOUNTER 2024-07-20 12:35 | Outpatient (OUT) | payer OTHER, SELFPAY ==
--- NOTE | 2024-07-20 12:41 | XR_ITS ---
The [address] [address] Patient Name: MELCHOR VERA MRN: [id number] date: 2000 Sex: F Assigned Patient Location: [facility] Current Patient Location: [facility] Accession/Order Number: [id number] Exam Date: 07/20/2024 13:09 Report Date: 07/20/2024 13:14 At the request of: RICHMOND STANLEY MD Procedure: XR lumbar spine min 4V LUMBAR SPINE -4 views: CLINICAL HISTORY: Chronic low back pain. No injury. COMPARISON: 11/28/2022 AP, lateral and both oblique views of the lumbosacral junction were obtained. 6 nonrib-bearing lumbar type vertebra are again seen. Prior chest x-ray shows 12 sets of normal ribs. There is no evidence of fracture. Alignment is maintained on the lateral view. No disproportionate disc space narrowing is present. No hypertrophy is seen. No pars defect is identified. The sacroiliac joints are maintained. There are no paraspinal soft tissue abnormalities. XR/XR lumbar spine min 4V IMPRESSION: TRANSITIONAL VERTEBRA. NO ACUTE BONY FINDINGS Impression dictated by: Mary Kay Bianchi M.D. 07/20/2024 1:14 PM Dictation Location: [place] [address] Electronically authenticated by: [id number] Y Date: 07/20/2024 13:14
== END 2024-07-20 12:36 | disposition home or self-care (01) ==
LOC: RAD 12:37
PROVIDERS: PCP Family Medicine; Visit Provider Family Medicine
DX: M54.50 Low back pain, unspecified (principal)
CPT/HCPCS: 72110

== ENCOUNTER 2024-07-27 15:19 | Outpatient (RCR) | payer OTHER, SELFPAY | END 2024-09-04 08:05 | disposition home or self-care (01) | LOC: PT 15:19 | PROVIDERS: PCP Family Medicine; Visit Provider Family Medicine | DX: M54.50 Low back pain, unspecified (principal) | CPT/HCPCS: 97110; 97112; 97140; 97162 ==

== ENCOUNTER 2024-11-30 15:42 | Outpatient (OUT) | payer OTHER, SELFPAY ==
--- OUTSIDE RECORDS SUMMARY | 2024-11-30 15:00 | XMS_ITS | Encounter Summary ---
Author Organization [facility] Address [address] [place] [address] Care Team Providers Care Candy Puller Name Role Phone Vladimir Parnell MD Primary Care Provider [phone] Reason for Visit * Reason Comments Well Women Visit Encounter Details Date Type Department Care Team (Late Contact Info) Description 11/30/2024 3:00 PM EDT Office Visit [facility] [address] [place] [phone] Deisy Stewart PA [address] [place], [place] [phone] Well woman exam with routine gynecological exam; [...] nursing note reviewed. Exam conducted with a curriculum development coordinator present. Vitals: There is no height or [...] EDT Procedure Visit [facility] [address] [place] [address] Deisy Stewart PA [address] [place] [address] Scheduled Orders Name Type Priority Associated Diagnoses [...] ovaries documented in this encounter Care Teams Candy Puller Relationship Specialty Start Date End Date Vladimir Parnell MD [address] [place] [address] PCP - General Family Medicine 11/18/23 documented as of this encounter
--- OUTSIDE RECORDS SUMMARY | 2024-11-30 15:48 | XMS_ITS | Encounter Summary ---
Author Organization [facility] Address [address] [place] [address] Care Team Providers Care Protection Manager Name Role Phone Vladimir Parnell MD Primary Care Provider [phone] Encounter Details Date Type Department Care Team (Latest Contact Info) Description 11/23/2024 Travel Social History Tobacco Use Types Packs/Day Years Used Date Smoking Tobacco: Never Assessed Comments No Sex and Gender Information Value Date Recorded Sex Assigned at Female 10/08/2023 7:59 PM EDT Legal Sex Female 11:49 PM EDT Gender Identity Female 10/08/2023 7:59 PM EDT Sexual Orientation Straight 10/08/2023 7: 59 PM EDT documented as of this encounter Plan of Treatment Upcoming Encounters Date Type Department Care Team (Late st Contact Info) Description 12/06/2025 3:00 PM EDT Procedure Visit [facility] [address] [facility] [phone] Deisy Stewart PA [address] [facility] [address] [place], [place] [id number] documented as of this encounter Visit Diagnoses Not on filedocumented in this encounter Care Teams Protection Manager Relationship Specialty Start Date End Date Vladimir Parnell MD [address] [place] [phone] PCP - General Family Medicine 11/18/23 documented as of this encounter
--- OUTSIDE RECORDS SUMMARY | 2024-11-30 15:48 | XMS_ITS | Encounter Summary ---
Author Organization [facility] Address [address] [place] [address] Care Team Providers Care Feather Baler Name Role Phone Vladimir Parnell MD Primary Care Provider [phone] Encounter Details Date Type Department Care Team (Late st Contact Info) Description 11/26/2023 Orders Only [facility] [address] [place] [address] [place] [phone] Cleo Lion MA [address] [place] [address] Social History Tobacco Use Types Packs/Day Years [...] Description 12/06/2025 3:00 PM EDT Procedure Visit [facility] [address] [place] [phone] Deisy Stewart PA [address] [facility] [place] [address] documented as of this encounter Procedures Procedure Name Priority Date/Time Associated Diagnosis Comments PAP SMEAR Routine 11/18/2023 12:00 AM EDT documented in this encounter Results * Pap Smear (11/18/2023 12:00 AM EDT) Swab Cervical swab / Unknown us [facility] ORDER[facility]LES Final Re sult [facility] documented in this encounter Visit Diagnoses Not on filedocumented in this encounter Care Teams Feather Baler Relationship Specialty Start Date End Date Vladimir Parnell MD [address] [place] [phone] PCP - General Family Medicine 11/18/23 documented as of this encounter
--- OUTSIDE RECORDS SUMMARY | 2024-11-30 15:48 | XMS_ITS | Clinical Summary ---
Author Organization [facility] Address [address] [place] [address] Care Team Providers Care Broadcast Operations Engineer Name Role Phone Vladimir Parnell MD Primary Care Provider [phone] Allergies No known active allergies Medications tiZANidine (Zanaflex) 4 MG tablet take 2 tablets by mouth every 8 hours if needed 02/27/2023 Active meloxicam (Mobic) 15 MG tablet 1 (one) time each day at the same time 03/26/2024 Active baclofen (Lioresal) 20 MG tablet 1-2 tabs Orally qhs 03/26/2024 Active meclizine (Antivert) 25 MG tablet Take 25 mg by mouth every 6 (six) hours if needed 12/09/2023 Active metFORMIN XR (Glucophage-XR) 500 MG 24 hr tabletIndicatio ns:PCOS (polycystic ovarian syndrome) Take 1 tablet (500 mg) by mouth in the evening. Take with meals Do not crush, chew, or split. 30 tablet 11 11/30/2024 5 Active Encounters Date Type Department Care Team Description 11/30/2024 3:00 PM EDT Office Visit [facility] [address] [place] [address] [place] [phone] Deisy Stewart PA Well woman exam with routine gynecological exam; PCOS (polycystic ovarian syndrome) 11/30/2024 Bamboo flowsheet [facility] [address] [place] [address] Deiys Stewart PA 11/23/2024 Travel from Last 3 Months Social History Tobacco Use Types Packs/Day Years Used Date Smoking Tobacco: Never Assessed Comments No Sex and Gender Information Value Date Recorded Sex Assigned at Female 10/08/2023 7:59 PM EDT Legal Sex Female 11:49 PM EDT Gender Identity Female 10/08/2023 7:59 PM EDT Sexual Orientation Straight 10/08/2023 7: 59 PM EDT Last Filed Vital Signs Vital Sign Reading Time Taken Comments Blood Pressure 128/82 11/30/2024 3:04 PM EDT Pulse - - Temperature - - Respiratory Rate - - Oxygen Saturation - - Inhaled Oxygen Concentration - - Weight 91.5 kg (201 lb 12 oz) 11/30/2024 3:04 PM EDT Height - - Body Mass Index - - Plan of Treatment Upcoming Encounters Date Type Department Care Team (Late st Contact Info) Description 12/06/2025 3:00 PM EDT Procedure Visit [facility] [address] [place] [phone] Deisy Stewart PA [address] [facility] [place] [address] Insurance [employer] Care Teams Broadcast Operations Engineer Relationship Specialty Start Date End Date Vladimir Parnell MD [address] [facility] [place] [phone] PCP - General Family Medicine 11/18/23
--- OUTSIDE RECORDS SUMMARY | 2024-11-30 15:48 | XMS_ITS | Clinical Summary ---
Author Organization [facility] Address [address] [place], [place] [phone] Care Team Providers Care Claims Adjuster Name Role Phone Unavailable Primary Care Provider Unavailabl e Allergies No known active allergies Medications acetaminophen-co deine (TYLENOL-COD #3) 300-30 mg per tablet TAKE 1 TABLET BY MOUTH EVERY 6 HOURS FOR 5 DAYS NEEDED FOR PAIN 12/03/2022 Active ibuprofen (MOTRIN) 800 mg tablet Take 800 mg by mouth every 8 hours as needed. 12/03/2022 Active BLISOVI FE , 1 mg-20 mcg (21)/75 mg (7) per tablet Take 1 tablet by mouth every morning. 01/18/2023 Active methocarbamol (ROBAXIN) 750 mg tablet Take 750 mg by mouth. 12/03/2022 Active Immunizations Immunization Administration Dates Next Due influenza (ccIIV4) vaccine, age 6+ mo, quadrivalent, PF (FLUCELVAX) 12/25/2019,02/02/2019,02/25/2017 meningococcal (MenACWY-D) va ccine, quadrivalent (MENACTRA) 12/25/2019 Social History Tobacco Use Types Packs/Day Years Used Date Smoking Tobacco: Never Smokeless Tobacco: Never Tobacco Cessation:Counseling Given: Not Answered Alcohol Use Standard Drinks/Week Comments Not Currently 0 (1 standard drink = 0.6 oz pur e alcohol) Comments No Sex and Gender Information Value Date Recorded Sex Assigned at Not on file Legal Sex Female 7:55 AM EST Gender Identity Not on file Sexual Orientation Not on file Last Filed Vital Signs Vital Sign Reading Time Taken Comments Blood Pressure 104/67 02/27/2023 7:44 AM EST Pulse 81 02/27/2023 7:44 AM EST Temperature 37.5 C (99.5 F) 02/27/2023 7:44 AM EST Pt was aditya Duffy Respiratory Rate - - Oxygen Saturation 100% 02/27/2023 7:4 4 AM EST Inhaled Oxygen Concentration - - Weight 81.5 kg (179 lb 10.8 oz) 02/27/2023 7:44 AM EST Height - - Body Mass Index - - Plan of Treatment Health Maintenance Due Date Last Done Comments Peds To Adult Transition Ini tial Discussion 2014 Peds To Adult Transition Hiwot ual Assessment 2016 HPV Vaccine (1 - 3-dose series) 2017 Meningococcal B Vaccine (1 o f 2 - Standard) 2018 Anxiety Screening 2020 Chlamydia Screening (18-24) 2020 Depression Screening 2020 GC (Gonorrhea) Screening (18-24) 2020 HIV Screening 2020 Hepatitis C Screening 2020 DTaP,Tdap,Td Vaccine (1 - Tdap) 2021 Hepatitis B Vaccine (1 of 3 - 19+ 3-dose series) 2021 Cervical Cancer Screening 09/06/2023 Influenza Vaccine (#1) 2024 0, 02/02/2019, 02/25/2017 Insurance [facility] CHO[facility] PLUS
--- OUTSIDE RECORDS SUMMARY | 2024-11-30 15:48 | XMS_ITS | Clinical Summary ---
Author Organization [facility] tem Address [id number] [address] [place] [address] Care Team Providers Care Director Stage Name Role Phone Vladimir Parnell MD Primary Care Provider [phone] Allergies No known active allergies Medications * This document contains information received from the source organization and may not represent a complete record from that organization. No known medications Active Problems Problem Noted Date Diagnosed Date Adjustment disorder with depressed mood 10/25/19 17 Family History Medical History Relation Name Comments ADD / ADHD Brother Depression Brother Depression Father Depression Mother Depression Sister Relation Name Status Comments Brother Father Mother Sister Social History Tobacco Use Types Packs/Day Years Used Date Smoking Tobacco: Never Smokeless Tobacco: Never Childcare Answer Date Recorded Childcare Unknown 08/14/2018 Employment Answer Date Recorded Employment Unknown 08/14/2018 Purpose - Life Answer Date Recorded Purpose and direction in life Unknown Comments Unknown Sex and Gender Information Value Date Recorded Sex Assigned at Not on file Legal Sex Female 4:50 PM EDT Gender Identity Not on file Sexual Orientation Not on file Plan of Treatment Health Maintenance Due Date Last Done Comments Depression Screening 2014 Tobacco Screening 2014 Adult BMI Screening 2020 DTaP,Tdap and Td Vaccines (1 - Tdap) 2021 Pap Smear 09/06/2023 Influenza Vaccine 11/09/2024 12/25/2019, , 02/25/2017 Medical Devices Not on file Insurance [facility] [employer] [employer] [employer] [facility] Care Teams Director Stage Relationship Specialty Start Date End Date Vladimir Parnell MD PCP - General 09/15/16
--- OUTSIDE RECORDS SUMMARY | 2024-11-30 15:52 | XMS_ITS | CCD ---
Author Organization [facility] [place] [facility] Care Team Providers Care Personal Lines Underwriter Name Role Phone PHYSICIAN, DEFAULT Admitting Unavailable PHYSICIAN, DEFAULT Attending Unavailable PHYSICIAN, DEFAULT Admitting Unavailable PHYSICIAN, DEFAULT Attending Unavailable DR RICHMOND PARNELL Primary Care Unavailable ERICH, DR CLEVELAND Consulting Unavailable ERICH, DR CLEVELAND Admitting Unavailable ERICH, DR CLEVELAND Attending Unavailable RICHMOND PARNELL Referring Unavailable ANURADHA STRINGER Attending Unavailable Richmond Parnell MD Primary Care Provider [phone] DEISY WRIGHT Attending Unavailable DEISY WRIGHT Attending Unavailable Richmond Parnell MD Primary Care Provider [phone] Medications Current Medications Medication Drug Class(es) Dates Sig (Normalized) Sig (Original) baclofen 20 mg oral tablet (6 sources) gamma-Aminobutyric Acid-ergic Agonist Start: 03-26-2024 take 1-2 tablets by mouth once daily at bedtime baclofen (Lioresal) 20 MG tablet 1-2 tabs Orally qhs 03/26/2024 Active meclizine hydrochloride 25 mg oral tablet (6 sources) Antiemetic Start: 12-09-2023 take 1 tablet by mouth every six hours as needed meclizine (Antivert) 25 MG tablet Take 25 mg by mouth every 6 (six) hours if needed 12/09/2023 Active meloxicam 15 mg oral tablet (6 sources) Nonsteroidal Anti-inflammatory Drug Start: 03-26-2024 meloxicam (Mobic) 15 MG tablet 1 (one) time each day at the same time 03/26/2024 Active 24 hr metFORMIN hydrochloride 500 mg extended release oral tablet (2 sources) Biguanide Start: 11-30-2024 End: 12-30-2024 take 1 tablet by mouth every twenty-four hours at mealtime metFORMIN XR (Glucophage-XR) 500 MG 24 hr tablet Indications: PCOS (polycystic ovarian syndrome) Take 1 tablet (500 mg) by mouth in the evening. Take with meals Do not crush, chew, or split. 30 tablet 11 11/30/2024 12/30/2024 Active metroNIDAZOLE 500 mg oral tablet (3 sources) Nitroimidazole Antimicrobial Start: 04-09-2024 End: 04-16-2024 take 1 tablet by mouth in the morning metroNIDAZOLE (Flagyl) 500 MG tablet Indications: Vaginal discharge , Vaginal itching Take 1 tablet (500 mg) by mouth in the morning and 1 tablet (500 mg) before bedtime. Do all this for 7 days. Do not drink alcohol while taking this medication. 14 tablet 04/09/2024 04/16/2024 Active tiZANidine 4 mg oral tablet (10 sources) Central alpha-2 Adrenergic Agonist Start: 02-27-2023 take 2 tablets by mouth every eight hours tiZANidine (Zanaflex) 4 MG tablet take 2 tablets by mouth every 8 hours if needed 02/27/2023 Active Completed/Discontinued Medications Medication Drug Class(es) Dates Sig (Normalized) Sig (Original) diclofenac sodium 75 mg delayed release oral tablet (6 sources) Nonsteroidal Anti-inflammatory Drug Start: 09-13-2023 End: 04-09-2024 take 1 tablet by mouth twice daily as needed diclofenac (Voltaren) 75 MG EC tablet Take 75 mg by mouth 2 (two) times a day as needed 09/13/2023 04/09/2024 Discontinued (Therapy completed) DULoxetine 60 mg delayed release oral capsule (6 sources) Serotonin and Norepinephrine Reuptake Inhibitor Start: 11-04-2023 End: 04-09-2024 take 1 capsule by mouth once daily DULoxetine (Cymbalta) [address] capsule Take 60 mg by mouth Daily 11/04/2023 04/09/2024 Discontinued (Therapy completed) Ethinyl Estradiol / Ferrous fumarate / Norethindrone (9 sources) Estrogen Start: 11-18-2023 End: 04-09-2024 norethindrone-ethi nyl estradiol (Blisovi FE 03/30) 1-20 MG-MCG tablet Indications: Encounter for surveillance of contraceptive pills Take 1 tablet by mouth Daily 28 tablet 12 11/18/2023 04/09/2024 Discontinued (Therapy completed) Start: 11-18-2023 End: 11-16-2024 norethindrone-ethinyl estrad iol (Blisovi FE 03/30) 1-20 MG-MCG tablet Indications: Encounter for surveillance of contraceptive pills Take 1 tablet by mouth Daily 28 tablet 12 11/18/2023 11/16/2024 Active Start: 12-28-2022 End: 11-18-2023 take 1 tablet by mouth in the morning Blisovi FE 03/30 1-20 MG-MCG tablet Indications: Encounter for surveillance of contraceptive pills Take 1 tablet by mouth in the morning. 28 tablet 12 12/28/2022 11/18/2023 Discontinued (Reorder) Start: 12-28-2022 End: 12-27-2023 take 1 tablet by mouth in the morning Blisovi FE 03/30 1-20 MG-MCG tablet Indications: Encounter for surveillance of contraceptive pills Take 1 tablet by mouth in the morning. 28 tablet 12 12/28/2022 12/27/2023 Active ibuprofen 800 mg oral tablet (6 sources) Nonsteroidal Anti-inflammatory Drug Start: 12-03-2022 End: 04-09-2024 take 1 tablet by mouth every eight hours as needed ibuprofen 800 MG tablet Take 800 mg by mouth every 8 (eight) hours if needed 12/03/2022 04/09/2024 Discontinued (Therapy completed) QUEtiapine 50 mg oral tablet (6 sources) Atypical Antipsychotic Start: 09-13-2023 End: 04-09-2024 take 1 tablet by mouth at bedtime QUEtiapine (SEROquel) 50 MG tablet Take 50 mg by mouth at bedtime 09/13/2023 04/09/2024 Discontinued (Therapy completed) Problems Active Problems Problem Classification Problem Date Documented Date Episodic/Chronic Other endocrine disorders (2 sources) Polycystic ovary syndrome; Translations: [Polycystic ovarian syndrome] 11-30-2024 Chronic Other female genital disorders (2 sources) Vaginal discharge; Translations: [Other specified noninflammatory disorders of vagina] 04-09-2024 Episodic Other female genital disorders (2 sources) Pruritus of vagina; Translations: [Other specified noninflammatory disorders of vagina] 04-09-2024 Episodic Other female genital disorders (2 sources) Vaginal dryness; Translations: [Other specified noninflammatory disorders of vagina] 04-09-2024 Episodic Unclassified (2 sources) COUGH, UNSPECIFIED; Translations: [COUGH, UNSPECIFIED] Onset: 04-03-2021 Unclassified (1 source) CONTACT W/AND (SUSP) EXPOS COVID-19; Translations: [CONTACT W/AND (SUSP) EXPOS COVID-19] Onset: 04-03-2021 Past or Other Problems Problem Classification Problem Date Documented Date Episodic/Chronic Contraceptive and procreative management (2 sources) Oral contraception; Translations: [Encounter for surveillance of contraceptive pills] 11-18-2023 Episodic Other upper respiratory infections (1 source) Acute upper respiratory infection, unspecified; Translations: [ACUTE UP RESPIRATORY INFECTION UNS] Onset: 04-03-2021 Episodic Unclassified (1 source) COUGH, UNSPECIFIED; Translations: [COUGH, UNSPECIFIED] Onset: 03-29-2021 Results Test Name Value Interpretation Reference Range Facility RECURRENT VAGINITIS (HTRX)on 04-10-2024 ATOPOBIUM VAGINAE 0 [facility] ATOPOBIUM VAGINAE Not detected [facility] BVAB 2,3 (BACTERIAL VAGINOSIS ASSOCIATED BACTERIA 2, 3); MOBILUNCUS SPP 0 [facility] BVAB 2,3 (BACTERIAL VAGINOSIS ASSOCIATED BACTERIA 2, 3); MOBILUNCUS SPP Not detected [facility] SHERRIE ALBICANS, PARAPSILOSIS, TROPICALIS 27.661 Abnormal [facility] SHERRIE ALBICANS, PARAPSILOSIS, TROPICALIS Detected Abnormal [facility] GLABRATA Not detected [facility] ealthcare SHERRIE KRUSEI [facility] SHERRIE KRUSEI Not detected [facility] lthcare CHLAMYDIA TRACHOMATIS 0 [facility] CHLAMYDIA TRACHOMATIS Not detected [facility] GARDNERELLA VAGINALIS 0 [facility] GARDNERELLA VAGINALIS Not detected [facility] Interpretation and review of laboratory results Abnormal [facility] MEGASPHAERA (TYPES 1, 2) 0 [facility] MEGASPHAERA (TYPES 1, 2) Not detected [facility] MYCOPLASMA GENITALIUM 0 [facility] MYCOPLASMA GENITALIUM Not detected [facility] NEISSERIA GONORRHOEAE 0 [facility] NEISSERIA GONORRHOEAE Not detected [facility] TRICHOMONAS VAGINALIS 0 [facility] TRICHOMONAS VAGINALIS Not detected [facility] HCG ( test) Ql (U)o n 04-09-2024 Interpretation and review of laboratory results Normal [facility] Preg Test, Ur Negative Negative [facility] Urinalysis macro (dipstick) panel (U)on 04-09-2024 Bilirubin, UA Negative Negative - 4(70) +++ mg/dL [facility] Blood, UA Negative Negative - 50 Tony/mcL [facility] Clarity, UA Clear [facility] re Color, UA Yellow [facility] Glucose, UA Negative Negative - 1999(110) ++++ mg/dL [facility] Interpretation and review of laboratory results Normal [facility] Ketones, UA Negative Negative - 160(16) ++++ mg/dL [facility] Leukocytes, UA Negative Negative - 500+++ Antonio/mcL [facility] Nitrite, UA Negative Negative - Positive [facility] pH, UA 6 5 - 9 [facility] e Protein, UA Negative Negative - 1999(20) ++++ mg/dL [facility] Spec Grav, UA 1.02 1 - 1.03 [facility] Urobilinogen, UA 0.2 0.2 - 12 mg/dL [facility] e IGP,APTIMA HPV,AGE GDLNon AGE GDLN ACOG TESTING Note . [facility] Comment on above: TESTS RESULT FLAG UN ITS REF RANGE LAB Clinician Provided Cytology Information Source.............Cervix;Endocervix No. of containers..01 ThinPrep Vial Age Algo ACOG Cecille... FLAG LEGEND: L-Low Normal,H-High Normal,LL-Alert Low,HH-Alert High <-Panic Low,>-Panic High,A-Abnormal,AA-Critical Abnormal Performed at: 01 =G [facility] [place] [address] [facility] [place] [address] Ranjana Leon MD, IGP, RFX APTIMA HPV ASCU Note . [facility] Comment on above: TESTS RESULT FLAG UN ITS REF RANGE LAB DIAGNOSIS: 02 NEGATIVE FOR INTRAEPITHELIAL LESION OR MALIGNANCY. Specimen adequacy: 02 Satisfactory for evaluation. Endocervical and/or squamous metaplastic cells (endocervical component) are present. Performed by: 02 Clari Ling, Raw Finish Mill Operator ([facility]) . 02 Note: Note 02 The Pap smear is a screening test designed to aid in the detection of premalignant and malignant conditions of the uterine cervix. It is not a diagnostic procedure and should not be used as the sole means of detecting cervical cancer. Both false-positive and false-negative reports do occur. Test Methodology: Note 02 This liquid based ThinPrep(R) pap test was screened with the use of an image guided system. . 02 The HPV DNA reflex criteria were not met with this specimen result therefore, no HPV testing was performed. FLAG LEGEND: L-Low Normal,H-High Normal,LL-Alert Low,HH-Alert High <-Panic Low,>-Panic High,A-Abnormal,AA-Critical Abnormal Performed at: 02 [address] [facility] [place] [place], [place] [address] Ranjana Leon MD, Performed at: = - [address] [id number] Senior Grant Writer: Ranjana Leon MD, Phone: [phone] Performed at: - [address] [id number] Senior Grant Writer: Ranjana Leon MD, Phone: [phone] [facility]USH[facility]SPATULA CERVIX ENDOCERVIX [facility] CNOVon 02-27-2023 CNOV Office Visit (SPMESH ) JANNIE GU ([id number]) 02 F Date Time Provider Department 02/27/23 8:00 AM ANURADHA STRINGER [facility] During your visit today, we recorded the following information about you: Temperature Pulse Blood pressure Weight 99.5 degrees 81/minute 104/67 81.5 kg Anuradha Stringer DO 03/27/2023 7:39 AM Signed [facility] Initial Exam [...] side of back, sharp pain. ([facility] 12/06/22). 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 BLISOVI FE 03/30, , 1 mg-20 mcg (21)/75 mg (7) [...] No edema noted. RESPIRATORY: non-labored breathing, no grunting/flaring/retr actions (more content not included)... Normal [facility] CULTURE THROATon 03-29-2021 CULTURE THROAT Isolate 1 Haemophilus influenzae Moderate growth of Normal [facility] Comment on above: Result Comment: Beta lactamase positive Performed By: #### S SCRN, THRTCX #### [facility] [address] [address] [address] Denise Ernandez Covid-19 PCR (CVDTB)on 03-11 SARS-CoV-2 (COVID-19) RNA CAROL+probe Ql (Unsp spec) Not detected Normal NOT DETECTED [facility] Comment on above: Result Comment: This test is not yet approved or cleared by the [place] FDA. When there are no FDA-approved or cleared tests available, and other criteria are met, FDA can make tests available under an emergency access mechanism called an Emergency Use Authorization (EUA). The EUA for this test is supported by the [place] of Health and Human Service's (HHS's) declaration [...] SARS-CoV-2. Performed By: #### C VDTBH #### [facility] [address] [place] [address] Dr. Denise Ernandez STREPT SCREENon 03-29-2021 STREP SCREEN A Negative Normal NEGATIVE [facility] Comment on above: Performed By: #### S SCRN, THRTCX #### [facility] [address] [place], [place] [address] Dr. Denise Ernandez Vital Signs Date Time Vital Sign Value Performing Clinician Faci lity 11-30-2024 15:04-0400 Body weight 91.51 kg Deisy Wright PA Work Phone: [facility] 11-30-2024 15:04-0400 Diastolic blood pressure 82 mm[Hg] Deisy Wright PA Work Phone: [facility] 11-30-2024 15:04-0400 Systolic blood pressure 128 mm[Hg] Deisy Wright PA Work Phone: [facility] 04-09-2024 15:15-0500 Body weight 85.73 kg Deisy Nicasio PA Work Phone: [facility] 04-09-2024 15:15-0500 Diastolic blood pressure 80 mm[Hg] Deisy Wright PA Work Phone: [facility] 04-09-2024 15:15-0500 Systolic blood pressure 124 mm[Hg] Deisy Wright PA Work Phone: [facility] 11-18-2023 15:52-0400 Body weight 80.29 kg Deisy Wright PA Work Phone: [facility] 11-18-2023 15:52-0400 Diastolic blood pressure 70 mm[Hg] Deisy MENDIOLA Work Phone: [facility] 11-18-2023 15:52-0400 Systolic blood pressure 120 mm[Hg] Deisy MENDIOLA Work Phone: [facility] Encounters Encounter Date Encounter Type Care Provider Facility Start: 11-30-2024 End: 11-30-2024 Patient encounter procedure Deisy MENDIOLA Work Phone: [facility] Start: 11-30-2024 End: 11-30-2024 Periodic preventive med est patient 18-39 yrs Deisy MENDIOLA Work Phone: [facility] Comment on above: Well woman exam with routine gynecological exam; PCOS (polycystic ovarian syndrome) Start: 11-30-2024 End: 11-30-2024 Bamboo flowsheet Deisy MENDIOLA Work Phone: [facility] Start: 11-30-2024 End: 11-30-2024 Bamboo flowsheet Deisy MENDIOLA Work Phone: [facility] Start: 04-09-2024 End: 04-09-2024 Office outpatient visit 15 minutes Deisy MENDIOLA Work Phone: [facility] Comment on above: Vaginal discharge; Vaginal itching; Vaginal dryness Start: 04-09-2024 End: 04-09-2024 ambulatory DEISY WRIGHT Not Available Start: 04-09-2024 End: 04-09-2024 Bamboo flowsheet Deisy MENDIOLA Work Phone: [facility] Start: 04-09-2024 End: 04-10-2024 Bamboo flowsheet Deisy MENDIOLA Work Phone: [facility] Start: 04-09-2024 End: 04-10-2024 External Result Encounter Deisy MENDIOLA Work Phone: [facility] External Department Unsolicited Start: 11-18-2023 End: 11-18-2023 Patient encounter procedure Deisy MENDIOLA Work Phone: [facility] Start: 11-18-2023 End: 11-18-2023 Periodic preventive med est patient 18-39 yrs Deisy MENDIOLA Work Phone: [facility] Comment on above: Well woman exam with routine gynecological exam; Encounter for surveillance of contraceptive pills Start: 11-18-2023 End: 11-18-2023 ambulatory DEISY WRIGHT Not Available Start: 11-18-2023 End: 11-18-2023 Bamboo flowsheet Deisy MENDIOLA Work Phone: [facility] Start: 11-18-2023 End: 11-22-2023 Clinisync Result Encounter Deisy MENDIOLA Work Phone: [facility] Unsolicited Start: 11-18-2023 End: 11-22-2023 Clinisync Result Encounter Deisy MENDIOLA Work Phone: [facility] Unsolicited Start: 02-27-2023 End: 02-27-2023 ambulatory RICHMOND PARNELL Facility:[facility] Start: 03-29-2021 End: 03-29-[address] RICHMOND PARNELL Facility: Start: 06-19-2018 End: 06-20-2018 Patient encounter procedure DEFAULT PHYSICIAN Facility:[facility] Start: 06-17-2018 End: 06-18-2018 Patient encounter procedure DEFAULT PHYSICIAN Facility:[facility] Procedures Date Procedure Procedure Detail Performing Clinician Start: 04-09-2024 RECURRENT VAGINITIS (HTRX) Deisy MENDIOLA Work Phone: Start: 04-09-2024 End: 04-09-2024 Urnls dip stick/tablet rgnt non-auto w/o micrscp Deisy MENDIOLA Work Phone: Start: 11-18-2023 IGP,APTIMA HPV,AGE GDLN Deisy MENDIOLA Work Phone: Plan of Treatment Date Care Activity Detail Author Start: 12-06-2025 End: 12-06-2025 Patient encounter procedure 12/06/2025 3:00 PM EDT Procedure Visit [facility] [address] [place] [id number] Deisy Wright PA [address] [place] [address] [facility] Start: 11-30-2024 End: 11-30-2024 Patient encounter procedure [facility] Comment on above: Arrived Start: 11-30-2024 End: 11-30-2025 DHEA DHEA Lab Routine PCOS (polycystic ovarian syndrome) Expected: 11/30/2024 (Approximate), Expires: 11/30/2025 [facility] Comment on above: Expected: 11/30/2024 (Approximate), Expires: 11/30/2025 Start: 11-30-2024 End: 11-30-2025 US Pelvis US Pelvis w/ TV Imaging Routine PCOS (polycystic ovarian syndrome) Expected: 11/30/2024, Expires: 11/30/2025 [facility] Comment on above: Expected: 11/30/2024 , Expires: 11/30/2025 Start: 04-09-2024 End: 04-09-2024 Patient encounter procedure 04/09/2024 3:20 PM EST Office Visit [facility] [address] [place] [id number] Deisy Wright, PA [address] [place] [address] [place] [address] Arrived [facility] Comment on above: Arrived Start: 11-18-2023 End: 11-18-2023 Patient encounter procedure 11/18/2023 4:00 PM EDT Office Visit [facility] [address] [place] [id number] Deisy Wright, PA [address] [place], [place] [id number] Arrived [facility] Comment on above: Arrived CBC W Auto Different ial panel - Blood CBC and differential Lab Routine PCOS (polycystic ovarian syndrome) Ordered: 11/30/2024 [facility] Comment on above: Ordered: 11/30/2024 CHLAMYDIA TRACHOMATI S (GENITO/STI) CHLAMYDIA TRACHOMATIS (GENITO/STI) Lab Routine Vaginal discharge Ordered: 04/09/2024 [facility] Comment on above: Ordered: 04/09/2024 Cytology Cervical or vaginal smear or scraping study Pap Smear Pathology and Cytology Routine Well woman exam with routine gynecological exam Ordered: 11/18/2023 [facility] Work Phone: Comment on above: Ordered: 11/18/2023 Cytology Cervical or vaginal smear or scraping study Pap Smear Pathology and Cytology Routine Well woman exam with routine gynecological exam Ordered: 11/30/2024 [facility] Work Phone: Comment on above: Ordered: 11/30/2024 DHEA-sulfate DHEA-sulfate Lab Routine PCOS (polycystic ovarian syndrome) Ordered: 11/30/2024 [facility] Comment on above: Ordered: 11/30/2024 Follicle stimulating hormone Follicle stimulating hormone Lab Routine PCOS (polycystic ovarian syndrome) Ordered: 11/30/2024 [facility] Comment on above: Ordered: 11/30/2024 hCG, quantitative, hCG, quantitative, Lab Routine PCOS (polycystic ovarian syndrome) Ordered: 11/30/2024 [facility] Comment on above: Ordered: 11/30/2024 Hemoglobin A1c/Hemoglobin.total in Blood Hemoglobin A1c Lab Routine PCOS (polycystic ovarian syndrome) Ordered: 11/30/2024 [facility] Comment on above: Ordered: 11/30/2024 Luteinizing hormone Luteinizing hormone Lab Routine PCOS (polycystic ovarian syndrome) Ordered: 11/30/2024 [facility] Comment on above: Ordered: 11/30/2024 Neisseria gonorrhoea e DNA [Presence] in Unspecified specimen by CAROL with probe detection Neisseria gonorrhea DNA probe, direct Lab Routine Vaginal discharge Ordered: 04/09/2024 [facility] Comment on above: Ordered: 04/09/2024 SURESWAB(R) ADVANCED VAGINITIS PLUS, TMA SURESWAB(R) ADVANCED VAGINITIS PLUS, TMA Pathology and Cytology Routine Vaginal discharge Ordered: 04/09/2024 [facility] Work Phone: Comment on above: Ordered: 04/09/2024 Thyrotropin [Units/volume] in Serum or Plasma TSH Lab Routine PCOS (polycystic ovarian syndrome) Ordered: 11/30/2024 [facility] Comment on above: Ordered: 11/30/2024 Thyroxine (T4) free [Mass/volume] in Serum or Plasma T4, free Lab Routine PCOS (polycystic ovarian syndrome) Ordered: 11/30/2024 [facility] Comment on above: Ordered: 11/30/2024 Payers Date Payer Category Payer Private Health Insurance [employer] [id number] 2023 Unknown 2023 Unknown [id number] 2002 Unknown [id number] 2002 Unknown [id number] 2002 Unknown [id number] 2002 Unknown [id number] 1965 Unknown [id number] 1959 Private Health Insurance [id number] 1959 Unknown [id number] Social History Date Type Detail Facility Tobacco smoking stat [facility] Tobacco smoking consumption unknown [facility] Start: 2002 Sex assigned at Female [facility] Start: 10-08-2023 Gender identity Identifies as female gender (finding) [facility] Start: 10-08-2023 Sexual orientation Heterosexual (fin ding) [facility] History of Present illness Narrative 11-30-2024 MARLENA Greer - 11/30/2024 3:00 PM EDT Note Date & Type Note Facility 11-30-2024 History of Presen t illness Narrative Reason for Appointment: Patient ID: Jannie Gu [...] nursing note reviewed. Exam conducted with a air crew officer present. Vitals: There is no height or [...] of: MARLENA Greer documented in this encounter [facility] History of Present illness Narrative 04-09-2024 MARLENA Greer - 04/09/2024 3:20 PM EST Note Date & Type Note Facility 04-09-2024 History of Presen t illness Narrative Reason for Appointment: Patient ID: Jannie Gu is a 23 y.o. female who presents for Vaginal Discharge (Pt present today for vaginal discharge, vaginal itching and vaginal dryness.) Patient presents today for STD Check. MEDICATIONS Current Outpatient Medications Medication Instructions baclofen [...] No family history on file. SURGICAL HISTORY History reviewed. No pertinent surgical history. REVIEW OF SYSTEMS Review of Systems: Review of Systems Constitutional: Negative. Negative for chills and fever. HENT: Negative. Negative for sore throat. Eyes: Negative. Respiratory: Negative. Cardiovascular: Negative. Gastrointestinal: Positive for constipation. Negative for abdominal pain, diarrhea, nausea and vomiting. Genitourinary: Positive for vaginal discharge. Negative for dysuria, flank pain, frequency, hematuria, pelvic pain and urgency. Musculoskeletal: Positive for back pain. Skin: Negative. Negative for rash. Neurological: Negative. Negative for headaches. All other systems reviewed and are negative. Hematological: Negative. Endocrine: Negative. Allergic/Immunologic: Negative. OBJECTIVE Objective: Physical Exam Constitutional: Appearance: Normal appearance. Genitourinary: No lesions in the vagina. Vaginal discharge present. No vaginal erythema or bleeding. Right Adnexa: not tender and no mass present. Left Adnexa: not tender and no mass present. No cervical discharge. Breasts: Breasts are soft. Right: Normal. Left: Normal. HENT: Head: Normocephalic. Nose: Nose normal. Mouth/Throat: Mouth: Mucous membranes are moist. Cardiovascular: Rate and Rhythm: Normal rate. Pulmonary: Effort: Pulmonary effort is normal. Abdominal: General: Bowel sounds are normal. Palpations: Abdomen is soft. Musculoskeletal: General: Normal range of motion. Cervical back: Normal range of motion. Neurological: General: No focal deficit present. Mental Status: She is alert. Skin: General: Skin is warm and dry. Psychiatric: Mood and Affect: Mood normal. Vitals and nursing note reviewed. Exam conducted with a air crew officer present. Vitals: There is no height or weight on file to calculate BMI. BP: 124/80 Patient's last menstrual period was 03/09/2024 (exact date). ASSESSMENT & PLAN ICD-10-CM 1. Vaginal discharge N89.8 SURESWAB(R) ADVANCED VAGINITIS PLUS, TMA CHLAMYDIA TRACHOMATIS (GENITO/STI) Neisseria gonorrhea DNA probe, direct POCT , urine manually resulted 2. Vaginal itching N89.8 3. Vaginal dryness N89.8 Pt present today for yellow vaginal discharge, itching and vaginal dryness.patient states symptoms began one week post intercourse. Pt states its been over a month since she has been sexually active. Pt is not taking any type of control at this time. Pt is having std cx's done at this visit and a test. Cx's were collected by Deisy MENDIOLA. Pt is made aware it will take up to two days for results to come back. Pt verbally understood if anything comes back positive results someone will contact the patient. Patient has small amount of discharge with odor. We will send in flagyl for patient to start taking and will notify pt if any further medication is needed Documented by Cleo Lion MA on behalf of: MARLENA Greer Answers submitted by the patient for this visit: Female Genital Questionnaire (Submitted on 04/08/2024) Chief Complaint: Female genitourinary complaint genital itching: Yes genital lesions: No genital odor: Yes genital rash: No missed menses: Yes vaginal bleeding: No Chronicity: new Onset: 1 to 4 weeks ago Frequency: every several days Progression since onset: waxing and waning Pain severity: no pain Affected side: both now?: No anorexia: No discolored urine: No joint pain: No joint swelling: No painful intercourse: No Aggravated by: nothing Sexual activity: sexually active Partner with STD symptoms: unknown control: condoms Menstrual history: irregular Discharge characteristics: normal, yellow Passing clots?: No Passing tissue?: No documented in this encounter [facility] History of Present illness Narrative 11-18-2023 MARLENA Greer - 11/18/2023 4:00 PM EDT Note Date & Type Note Facility 11-18-2023 History of Presen t illness Narrative Reason for Appointment: Patient ID: Jannie Gu is a 23 y.o. female who presents for Gynecologic Exam Patient presents today for Annual Exam. MEDICATIONS Current Outpatient Medications Medication Instructions Blisovi FE 03/30 1-20 MG-MCG tablet 1 tablet, Oral, Daily diclofenac (VOLTAREN) 75 mg, Oral, 2 times daily PRN DULoxetine (CYMBALTA) 60 mg, Oral, Daily ibuprofen 800 mg, Oral, Every 8 hours PRN QUEtiapine (SEROQUEL) 50 mg, Oral, Nightly tiZANidine (Zanaflex) 4 MG tablet take 2 [...] No family history on file. SURGICAL HISTORY History reviewed. No pertinent surgical history. REVIEW OF SYSTEMS Review of Systems: Review of Systems Constitutional: Negative. HENT: Negative. Eyes: Negative. Respiratory: Negative. Cardiovascular: Negative. Gastrointestinal: Negative. Genitourinary: Negative. Musculoskeletal: Negative. Skin: Negative. Neurological: Negative. All other systems reviewed and are negative. Hematological: Negative. Endocrine: Negative. Allergic/Immunologic: Negative. OBJECTIVE Objective: Physical Exam Constitutional: Appearance: Normal appearance. She is well-developed. Genitourinary: Vulva normal. Right Adnexa: not tender and no mass present. Left Adnexa: not tender and no mass present. No cervical discharge. Breasts: Breasts are soft. Right: Normal. Left: Normal. HENT: Head: Normocephalic. Nose: Nose normal. Mouth/Throat: Mouth: Mucous membranes are moist. Cardiovascular: Rate and Rhythm: Normal rate and regular rhythm. Pulmonary: Effort: Pulmonary effort is normal. Breath sounds: Normal breath sounds. Abdominal: General: Bowel sounds are normal. There is no distension. Palpations: Abdomen is soft. Tenderness: There is no abdominal tenderness. There is no guarding or rebound. Musculoskeletal: General: No swelling. Normal range of motion. Cervical back: Normal range of motion. Right lower leg: No edema. Left lower leg: No edema. Neurological: General: No focal deficit present. Mental Status: She is alert and oriented to person, place, and time. Skin: General: Skin is warm and dry. Psychiatric: Mood and Affect: Mood normal. Behavior: Behavior normal. Vitals and nursing note reviewed. Exam conducted with a air crew officer present. Vitals: There is no height or weight on file to calculate BMI. BP: 120/70 No LMP recorded (lmp unknown). (Menstrual status: No Periods). ASSESSMENT & PLAN ICD-10-CM 1. Well woman exam with routine gynecological exam Z01.419 Pap Smear Pt present for her annual visit. Pt having her first pap smear today. Pt is taking b/c and sexually active. Pt has no issues. Pap smear was preformed and collected by Deisy Sky. Documented by Cleo Lion MA on behalf of: MARLENA Greer documented in this encounter [facility] Progress note 02-27-2023 Note Date & Type Note Facility 02-27-2023 Note HNO ID: [id number] Author: ANURADHA STRINGER, DO Service: ? Author Type: Physician Type: Progress Notes Filed: 03/27/2023 07:39 Note Text: [facility] - Medical Spine Initial Exam [...] lower left side of back, sharp pain. ([facility] 12/06/22). Now pain is up and down [...] Without Pain CERVICAL (more content not included)... [facility] Progress note 01-23-2023 Note Date & Type Note Facility 01-23-2023 Note HNO ID: [id number] Author: Chayito Hinton PA-C Service: ? Author Type: Physician Eligibility Services Representative Type: Progress Notes Filed: 01/23/2023 9:52 PM [...] reviewed during the appt Chayito Hinton PA-C [facility] Progress note 01-22-2023 Note Date & Type Note Facility 01-22-2023 Note HNO ID: [id number] Author: Jone Martin Service: ? Author Type: ? Type: Progress Notes Filed: 01/23/2023 9:52 PM Note Text: Patient name: Jannie Gu Are you being referred by a [facility] Provider or Pain Management Provider at [facility]? No If answer is YES please schedule [...] the facility where the MRI/CT/myelogram was completed: [facility] Address: [address] [place] [address] MRI/CT/myelogram viewable in Epic: No If not, please provide [phone] to fax in imaging reports for review. [...] where the surgery was completed: Additional Comments [facility] Evaluation note Note Date & Type Note Facility Evaluation note Diagnosis Well woman exam with routine gynecological exam Routine gynecological examination Encounter for surveillance of contraceptive pills documented in this encounter [facility] Evaluation note Note Date & Type Note Facility Evaluation note Diagnosis Vaginal discharge Leukorrhea, not specified as infective Vaginal itching Pruritus of genital organs Vaginal dryness Postmenopausal atrophic vaginitis documented in this encounter [facility] Healthcare Evaluation note Note Date & Type Note Facility Evaluation note Diagnosis Well woman exam with routine gynecological exam Routine gynecological examination PCOS (polycystic ovarian syndrome) Polycystic ovaries documented in this encounter [facility] Healthcare Summary Purpose Family History No Family History Records FoundNo Family History Records FoundNo Family History Records FoundNo Family History Records Found Advance Directives No Advanced Directives Records FoundNo Advanced Directives Records FoundNo Advanced Directives Records FoundNo Advanced Directives Records Found Additional Source Comments INFORMATION SOURCE (unrecogn ized section and content) DATE CREATED AUTHOR 06/20/2018 [facility] DATE CREATED AUTHOR AUTHOR'S ORGANIZ ATION 08/23/[address] [facility] DATE CREATED AUTHOR AUTHOR'S ORGANIZ ATION 03/28/2023 [facility] DATE CREATED AUTHOR AUTHOR'S ORGANIZ ATION 04/11/2024 [facility] EPIC Care Teams (unrecognized sec tion and content) Personal Lines Underwriter Relationship Specialty Start Date End Date Richmond Parnell MD [address] [place] [id number] PCP - General Family Medicine 11/18/23 Personal Lines Underwriter Relationship Specialty Start Date End Date Richmond Parnell MD [address] [place] [address] PCP - General Family Medicine 11/18/23 Personal Lines Underwriter Relationship Specialty Start Date End Date Richmond Parnell MD [address] [facility] [place] [address] PCP - General Family Medicine 11/18/23 Personal Lines Underwriter Relationship Specialty Start Date End Date Richmond Parnell MD [address] [place] [address] PCP - General Family Medicine 11/18/23 Personal Lines Underwriter Relationship Specialty Start Date End Date Richmond Parnell MD [address] [place] [address] PCP - General Family Medicine 11/18/23 Personal Lines Underwriter Relationship Specialty Start Date End Date Richmond Parnell MD [address] [facility] [place] [address] PCP - General Family Medicine 11/18/23 Personal Lines Underwriter Relationship Specialty Start Date End Date Richmond Parnell MD [address] [place] [address] PCP - General Family Medicine 11/18/23 Reason for Visit (unrecogniz ed section and content) Reason Comments Gynecologic Exam Reason Comments Vaginal Discharge Pt present today for vaginal discharge, vaginal itching and vaginal dryness. Reason Comments Well Women Visit FOR RECORDS PERTAINING TO PATIENTS WHO ARE [...] BE BASED ON THE PRIMARY CLINICAL RECORDS. [facility]. provides no warranty or guarantee of the accuracy or completeness of information in this document.
[2024-11-30 16:07] LABS: Hematocrit 38.3 % (36.0-48.0); Hemoglobin 13.1 g/dL (12.0-16.0); Immature Granulocytes Abs Auto 0.00 10^3/uL (0.00-0.03); Immature Granulocytes Pct Auto 0.0 % (0.0-0.5); Lymphocytes Absolute Auto 1.3 10^3/uL (1.2-3.8); Mean Corpuscular HGB Conc 34.2 g/dL (29.9-35.2); Mean Corpuscular Hemoglobin 31.6 pg (26.7-34.0); Mean Corpuscular Volume 92.3 fL (81.0-99.0); Platelet Count 234 10^3/uL (150-450); Red Blood Count 4.15 10^6/uL (4.20-5.40); White Blood Count 6.4 10^3/uL (4.0-11.0)
[2024-11-30 16:52] LABS: Thyroid Stimulating Hormone 0.808 uIU/mL (0.358-3.740)
[2024-12-02 08:09] LABS: FSH 6.0 mIU/mL (.)
== END 2024-11-30 15:43 | disposition home or self-care (01) ==
LOC: LAB 15:46
PROVIDERS: PCP Family Medicine; Visit Provider Physician Assistant
DX: E28.2 Polycystic ovarian syndrome (principal); Z01.419 Encounter for gynecological examination (general) (routine) without abnormal findings
CPT/HCPCS: 36415; 82626; 82627; 83001; 83002; 83036; 84439; 84443; 84702; 85025; 88175

== ENCOUNTER 2024-11-30 21:13 | Outpatient (REF) | payer OTHER, SELFPAY ==
--- OUTSIDE RECORDS SUMMARY | 2023-11-13 12:00 | XMS_ITS ---
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 Subjective: * Chief Complaints: * 1 . Infected toe. * Medical History: Objective: * Vitals: Assessment: Plan: * Treatment: * * Electronic signature of Brent Parnell MD, [id number] on 11/30/2024 at 02:41 PM EDT Sign off status: Pending Visit Status: C ANC (Cancelled) * Provider: Sandra Parnell MD (TTC) Date: 0 11/13/2023 Generated for Printi ng/Fatysong/eTransmitting on: 0 11/30/2024 02:41 PM EDT
--- OUTSIDE RECORDS SUMMARY | 2024-11-30 15:00 | XMS_ITS | Encounter Summary ---
Author Organization [facility] Address [address] [place] [address] Care Team Providers Care Head Girls Golf Coach Name Role Phone Vladimir Parnell MD Primary Care Provider [phone] Reason for Visit * Reason Comments Well Women Visit Encounter Details Date Type Department Care Team (Late Contact Info) Description 11/30/2024 3:00 PM EDT Office Visit [facility] [address] [place] [phone] Deisy Stewart PA [address] [place], [place] [id number] Well woman exam with routine gynecological exam; PCOS (polycystic ovarian syndrome) Social History Tobacco Use Types Packs/Day Years Used Date Smoking Tobacco: Never Assessed Comments No Sex and Gender Information Value Date Recorded Sex Assigned at Female 10/08/2023 7:59 PM EDT Legal Sex Female 11:49 PM EDT Gender Identity Female 10/08/2023 7:59 PM EDT Sexual Orientation Straight 10/08/2023 7: 59 PM EDT documented as of this encounter Last Filed Vital Signs Vital Sign Reading Time Taken Comments Blood Pressure 128/82 11/30/2024 3:04 PM EDT Pulse - - Temperature - - Respiratory Rate - - Oxygen Saturation - - Inhaled Oxygen Concentration - - Weight 91.5 kg (201 lb 12 oz) 11/30/2024 3:04 PM EDT Height - - Body Mass Index - - documented in this encounter Progress Notes * MARLENA Greer - 11/30/2024 3:00 PM EDT Reason for Appointment: Patient ID: Jannie Gu is a 24 y.o. female who presents for Well Women Visit Patient presents today for Annual Exam. MEDICATIONS Current Outpatient Medications Medication Instructions baclofen (Lioresal) 20 MG tablet 1-2 tabs Orally qhs meclizine (ANTIVERT) 25 mg, Every 6 hours PRN meloxicam (Mobic) 15 MG tablet Every 24 hours tiZANidine (Zanaflex) 4 MG tablet take 2 tablets by mouth every 8 hours if needed ALLERGIES No Known Allergies PROBLEMS Active Ambulatory Problems Diagnosis Date Noted No Active Ambulatory Problems Resolved Ambulatory Problems Diagnosis Date Noted No Resolved Ambulatory Problems No Additional Past Medical History HISTORY PAST MEDICAL HISTORY SOCIAL HISTORY No past medical history on file. Social History Tobacco Use Smoking status: Not on file Smokeless tobacco: Not on file Substance Use Topics Alcohol use: Not on file Drug use: Not on file FAMILY HISTORY No family history on file. SURGICAL HISTORY No past surgical history on file. REVIEW OF SYSTEMS Review of Systems: Review of Systems Constitutional: Negative. Excessive sweating and facial hair HENT: Negative. Eyes: Negative. Respiratory: Negative. Cardiovascular: Negative. Gastrointestinal: Negative. Genitourinary: Positive for menstrual problem. DUB Musculoskeletal: Negative. Skin: Negative. Neurological: Negative. All other systems reviewed and are negative. Hematological: Negative. Endocrine: Negative. Allergic/Immunologic: Negative. OBJECTIVE Objective: Physical Exam Constitutional: Appearance: Normal appearance. She is well-developed. Genitourinary: Vulva normal. Breasts: Breasts are soft. Right: Normal. Left: Normal. Cardiovascular: Rate and Rhythm: Normal rate and regular rhythm. Pulmonary: Effort: Pulmonary effort is normal. Breath sounds: Normal breath sounds. Abdominal: General: Bowel sounds are normal. There is no distension. Palpations: Abdomen is soft. Tenderness: There is no abdominal tenderness. There is no guarding or rebound. Musculoskeletal: General: No swelling. Normal range of motion. Right lower leg: No edema. Left lower leg: No edema. Neurological: Mental Status: She is alert and oriented to person, place, and time. Skin: General: Skin is warm and dry. Psychiatric: Mood and Affect: Mood normal. Behavior: Behavior normal. Vitals and nursing note reviewed. Exam conducted with a medical cost consultant present. Vitals: There is no height or weight on file to calculate BMI. BP: 128/82 Patient's last menstrual period was 11/18/2024 (approximate). ASSESSMENT & PLAN ICD-10-CM 1. Well woman exam with routine gynecological exam Z01.419 Pap Smear 2. PCOS (polycystic ovarian syndrome) E28.2 hCG, quantitative, TSH T4, free CBC and differential Follicle stimulating hormone Luteinizing hormone Hemoglobin A1c DHEA-sulfate DHEA US Pelvis w/ TV DHEA Annual Exam: Patient presents today for an annual exam. Patient states she is doing well and has no complaints. Pap was obtained without difficulty. Orders Placed This Encounter Procedures US Pelvis w/ TV hCG, quantitative, TSH T4, free CBC and differential Follicle stimulating hormone Luteinizing hormone Hemoglobin A1c DHEA-sulfate DHEA Follow Up: Patient is to return in one year for annual unless needed otherwise. Documented by Arabella Chen NP on behalf of: MARLENA Greer documented in this encounter Plan of Treatment Upcoming Encounters Date Type Department Care Team (Late st Contact Info) Description 12/06/2025 3:00 PM EDT Procedure Visit [facility] [address] [place] [address] Deisy Stewart PA [address] [place] [address] Scheduled Orders Name Type Priority Associated Diagnoses Orde r Schedule Pap Smear Pathology and Cytology Routine Well woman exam with routine gynecological exam Ordered: 11/30/2024 hCG, quantitative, Lab Routine PCOS (polycystic ovarian syndrome) Ordered: 11/30/2024 TSH Lab Routine PCOS (polycystic ovarian syndrome) Ordered: 11/30/2024 T4, free Lab Routine PCOS (polycystic ovarian syndrome) Ordered: 11/30/2024 CBC and differential Lab Routine PCOS (polycystic ovarian syndrome) Ordered: 11/30/2024 Follicle stimulating hormone Lab Routine PCOS (polycystic ovarian syndrome) Ordered: 11/30/2024 Luteinizing hormone Lab Routine PCOS (polycystic ovarian syndrome) Ordered: 11/30/2024 Hemoglobin A1c Lab Routine PCOS (polycystic ovarian syndrome) Ordered: 11/30/2024 DHEA-sulfate Lab Routine PCOS (polycystic ovarian syndrome) Ordered: 11/30/2024 DHEA Lab Routine PCOS (polycystic ovarian syndrome) Expected: 11/30/2024 (Approximate), Expires: 11/30/2025 US Pelvis w/ TV Imaging Routine PCOS (polycystic ovarian syndrome) Expected: 11/30/2024, Expires: 11/30/2025 TSH Lab Routine PCOS (polycystic ovarian syndrome) Ordered: 11/30/2024 documented as of this encounter Visit Diagnoses Diagnosis Well woman exam with routine gynecological exam Routine gynecological examination PCOS (polycystic ovarian syndrome) Polycystic ovaries documented in this encounter Care Teams Head Girls Golf Coach Relationship Specialty Start Date End Date Vladimir Parnell MD [address] [place] [address] PCP - General Family Medicine 11/18/23 documented as of this encounter
--- OUTSIDE RECORDS SUMMARY | 2024-11-30 21:15 | XMS_ITS | CCD ---
Author Organization [facility] Care Team Providers Care Account Advisor Name Role Phone PHYSICIAN, DEFAULT Admitting Unavailable PHYSICIAN, DEFAULT Attending Unavailable PHYSICIAN, DEFAULT Admitting Unavailable PHYSICIAN, DEFAULT Attending Unavailable DR RICHMOND PARNELL Primary Care Unavailable ERICH, DR CLEVELAND Consulting Unavailable ERICH, DR CLEVELAND Admitting Unavailable ERICH, DR CLEVELAND Attending Unavailable RICHMOND PARNELL Referring Unavailable ANURADHA STRINGER Attending Unavailable Richmond Parnell MD Primary Care Provider [phone] DEISY WRIGHT Attending Unavailable DEISY WRIGHT Attending Unavailable Richmond Parnell MD Primary Care Provider [phone] Medications Current Medications Medication Drug Class(es) Dates Sig (Normalized) Sig (Original) baclofen 20 mg oral tablet (7 sources) gamma-Aminobutyric Acid-ergic Agonist Start: 03-26-2024 take 1-2 tablets by mouth once daily at bedtime baclofen (Lioresal) 20 MG tablet 1-2 tabs Orally qhs 03/26/2024 Active meclizine hydrochloride 25 mg oral tablet (7 sources) Antiemetic Start: 12-09-2023 take 1 tablet by mouth every six hours as needed meclizine (Antivert) 25 MG tablet Take 25 mg by mouth every 6 (six) hours if needed 12/09/2023 Active meloxicam 15 mg oral tablet (7 sources) Nonsteroidal Anti-inflammatory Drug Start: 03-26-2024 meloxicam (Mobic) 15 MG tablet 1 (one) time each day at the same time 03/26/2024 Active 24 hr metFORMIN hydrochloride 500 mg extended release oral tablet (3 sources) Biguanide Start: 11-30-2024 End: 12-30-2024 take [...] 04/16/2024 Active tiZANidine 4 mg oral tablet (11 sources) Central alpha-2 Adrenergic Agonist Start: 02-27-2023 [...] Test Name Value Interpretation Reference Range Facility ALL CBC WITH AUTO DIFFon BASOPHILS ABSOLUTE AUTO 0 [facility] Basophils/100 WBC (Bld) 0.5 % 0.2 - 2.0 % [facility] Eosinophils/100 WBC (Bld) 1.7 % 0.9 - 7.0 % [facility] Erythrocyte distribution width (RBC) [Ratio] 11.8 % 11.0 - 15.0 % [facility] Hematocrit (Bld) [Volume fraction] 38.3 % 36.0 - 48.0 % [facility] Hem[facility] (Bld) [Mass/Vol] 13.1 g/dL 12.0 - 16.0 g/dL [facility] IMMATURE GRANULOCYTES ABS AUTO 0 [facility] Immature granulocytes/100 WBC (Bld) 0 % 0.0 - 0.5 % [facility] Interpretation and review of laboratory results Abnormal [facility] LYMPHOCYTES ABSOLUTE AUTO 1.3 [facility] Lymphocytes/100 WBC (Bld) 20.9 % 20.5 - 60.0 % [facility] MCH (RBC) [Entitic mass] 31.6 pg 26.7 - 34.0 pg [facility] MCHC (RBC) [Mass/Vol] 34.2 g/dL 29.9 - 35.2 g/dL [facility] MCV (RBC) [Entitic vol] 92.3 fL 81.0 - 99.0 fL [facility] MONOCYTES ABSOLUTE AUTO 0.4 [facility] Monocytes/100 WBC (Bld) 5.9 % 1.7 - 12.0 % [facility] NEUTROPHILS ABSOLUTE AUTO 4.6 [facility] Neutrophils/100 WBC (Bld) 71 % 43.0 - 75.0 % [facility] Platelet mean volume (Bld) [Entitic vol] 9.8 fL 9.5 - 13.5 fL [facility] are TBH EO # 0.1 [facility] TBH PLT 234 [facility] e TB RBC 4.15 Low [facility] e TBH WBC 6.4 [facility] e [facility] e RECURRENT VAGINITIS (HTRX)on 04-10-2024 ATOPOBIUM VAGINAE 0 [facility] ATOPOBIUM VAGINAE Not detected [facility] BVAB 2,3 (BACTERIAL VAGINOSIS ASSOCIATED BACTERIA 2, 3); MOBILUNCUS SPP 0 [facility] BVAB 2,3 (BACTERIAL VAGINOSIS ASSOCIATED BACTERIA 2, 3); MOBILUNCUS SPP Not detected [facility] SHERRIE ALBICANS, PARAPSILOSIS, TROPICALIS 27.661 Abnormal [facility] SHERRIE ALBICANS, PARAPSILOSIS, TROPICALIS Detected Abnormal [facility] SHERRIE GLABRATA 0 [facility] Hea lthcare SHERRIE GLABRATA Not detected [facility] ealthcare SHERRIE KRUSEI 0 [facility] Healt hcare SHERRIE KRUSEI Not detected [facility] lthcare CHLAMYDIA TRACHOMATIS 0 [facility] CHLAMYDIA TRACHOMATIS Not detected [facility] GARDNERELLA VAGINALIS 0 [facility] GARDNERELLA VAGINALIS Not detected [facility] Interpretation and review of laboratory results Abnormal [facility] MEGASPHAERA (TYPES 1, 2) 0 [facility] MEGASPHAERA (TYPES 1, 2) Not detected [facility] MYCOPLASMA GENITALIUM 0 [facility] MYCOPLASMA GENITALIUM Not detected [facility] NEISSERIA GONORRHOEAE 0 [facility] NEISSERIA GONORRHOEAE Not detected [facility] TRICHOMONAS VAGINALIS 0 [facility] TRICHOMONAS VAGINALIS Not detected On license of [facility] e HCG ( test) Ql (U)o n 04-09-2024 Interpretation and review of laboratory results Normal [facility] Preg Test, Ur Negative Negative [facility] e Urinalysis macro (dipstick) panel (U)on 04-09-2024 Bilirubin, UA Negative Negative - 4(70) +++ mg/dL [facility] Blood, UA Negative Negative - 50 Tony/mcL [facility] Clarity, UA Clear [facility] re Color, UA Yellow [facility] Healthcar e Glucose, UA Negative Negative - 1999(110) ++++ mg/dL [facility] Interpretation and review of laboratory results Normal [facility] Ketones, UA Negative Negative - 160(16) ++++ mg/dL [facility] Leukocytes, UA Negative Negative - 500+++ Antonio/mcL [facility] Nitrite, UA Negative Negative - Positive [facility] pH, UA 6 5 - 9 [facility] Protein, UA Negative Negative - 1999(20) ++++ mg/dL [facility] Spec Grav, UA 1.02 1 - 1.[address] [facility] Urobilinogen, UA 0.2 0.2 - 12 mg/dL [facility] Healthv[facility] e IGP,APTIMA HPV,AGE GDLNon AGE GDLN ACOG TESTING Note . [facility] Comment on above: TESTS RESULT FLAG UN ITS REF RANGE LAB Clinician Provided Cytology Information Source.............Cervix;Endocervix No. of containers..01 ThinPrep Vial Age Algo ACOG Cecille... -08 04 FLAG LEGEND: L-Low Normal,H-High Normal,LL-Alert Low,HH-Alert High <-Panic Low,>-Panic High,A-Abnormal,AA-Critical Abnormal Performed at: 01 =G [facility] [place] [address] Ranjana Leon MD, IGP, RFX APTIMA HPV ASCU Note . [facility] Comment on above: TESTS RESULT FLAG UN ITS REF RANGE LAB DIAGNOSIS: 02 NEGATIVE FOR INTRAEPITHELIAL LESION OR MALIGNANCY. Specimen adequacy: 02 Satisfactory for evaluation. Endocervical and/or squamous metaplastic cells (endocervical component) are present. Performed by: 02 Clari Ling, Steam Tender ([facility]) . 02 Note: Note 02 [...] <-Panic Low,>-Panic High,A-Abnormal,AA-Critical Abnormal Performed at: [address] [address] Ranjana Leon MD, Performed at: =G - [facility] [id number] Staff Counselor: Ranjana Leon MD, Phone: [phone] Performed at: - [facility] [id number] Staff Counselor: Ranjana Leon MD, Phone: [phone] BRUSH-SPATULA CERVIX ENDOCERVIX [facility] MELISSA Macdonald 02-27-2023 CNOV Office Visit (SPMESH ) JANNIE GU ([id number]) 02 F Date Time Provider Department 02/27/23 8:00 AM ANURADHA STRINGER SPMESH During your visit today, we recorded the following information about you: Temperature Pulse Blood pressure Weight 99.5 degrees 81/minute 104/67 81.5 kg Anuradha Stringer, DO 03/27/2023 7:39 AM Signed [facility] Neurological [facility] - Medical Spine Initial Exam [...] lower left side of back, sharp pain. ([facility] 12/06/22). Now pain is up and [...] grunting/flaring/retr actions (more content not included)... Normal [facility] CULTURE THROATon 03-29-2021 CULTURE THROAT Isolate 1 Haemophilus influenzae Moderate growth of Normal [facility] Comment on above: Result Comment: Beta lactamase positive Performed By: #### S SCRN, THRTCX #### [facility] [address] [address] [address] Denise Ernandez [facility]-11 SARS-CoV-2 (COVID-19) RNA CAROL+probe Ql (Unsp spec) Not detected Normal NOT DETECTED [facility] Comment on above: Result Comment: This test is not yet approved or cleared by the [place] FDA. When there are no FDA-approved or cleared tests available, and other criteria are met, FDA can make tests available under an emergency access mechanism called an Emergency Use Authorization (EUA). The EUA for this test is supported by the [place] of Health and Human Service's (HHS's) declaration [...] SARS-CoV-2. Performed By: #### C VDTBH #### [facility] [address] [place], [place] [address] Dr. Denise Ernandez STREPT SCREENon 03-29-2021 STREP SCREEN A Negative Normal NEGATIVE [facility] Comment on above: Performed By: #### S SCRN, THRTCX #### [facility] [address] [place], [place] [address] Dr. Denise Ernandez Vital Signs Date Time Vital Sign Value Performing Clinician Ivan modi 11-30-2024 15:04-0400 Body weight 91.51 kg Deisy Wright PA Work Phone: [facility] 11-30-2024 15:04-0400 Diastolic blood pressure 82 mm[Hg] Deisy Ashford PA Work Phone: [facility] 11-30-2024 15:04-0400 Systolic blood pressure 128 mm[Hg] Deisy Ashford PA Work Phone: [facility] 04-09-2024 15:15-0500 Body weight 85.73 kg Deisy Pat PA Work Phone: [facility] 04-09-2024 15:15-0500 Diastolic blood pressure 80 mm[Hg] Desiy Pat PA Work Phone: [facility] 04-09-2024 15:15-0500 Systolic blood pressure 124 mm[Hg] Deisy Pat PA Work Phone: [facility] 11-18-2023 15:52-0400 Body weight 80.29 kg Deisy Ashford PA Work Phone: [facility] 11-18-2023 15:52-0400 Diastolic blood pressure 70 mm[Hg] Deisy Pat PA Work Phone: [facility] 11-18-2023 15:52-0400 Systolic blood pressure 120 mm[Hg] Deisy Pat PA Work Phone: [facility] Encounters Encounter Date Encounter Type Care Provider Facility Start: 11-30-2024 End: 11-30-2024 Patient encounter procedure Deisy MENDIOLA Work Phone: [facility] Start: 11-30-2024 End: 11-30-2024 Periodic preventive med est patient 18-39 yrs Deisy MENDIOLA Work Phone: [facility] Comment on above: Well woman exam with routine gynecological exam; PCOS (polycystic ovarian syndrome) Start: 11-30-2024 End: 11-30-2024 Bamboo flowsheet Deisy MENDIOLA Work Phone: [facility] Start: 11-30-2024 End: 11-30-2024 Bamboo flowsheet Deisy MENDIOLA Work Phone: [facility] Start: 11-30-2024 End: 11-30-2024 [facility] Result Encounter Deisy MENDIOLA Work Phone: [facility] Unsolicited Start: 04-09-2024 End: 04-09-2024 Office outpatient visit 15 minutes Deisy MENDIOLA Work Phone: [facility] Comment on above: Vaginal discharge; Vaginal itching; Vaginal dryness Start: 04-09-2024 End: 04-09-2024 ambulatory DEISY WRIGHT Not Available Start: 04-09-2024 End: 04-09-2024 Bamboo flowsheet Deisy MENDIOLA Work Phone: [facility] Start: 04-09-2024 End: 04-10-2024 Bamboo flowsheet Deisy MENDIOLA Work Phone: [facility] Start: 04-09-2024 End: 04-10-2024 External Result Encounter Deisy MENDIOLA Work Phone: [facility] Unsolicited Start: 11-18-2023 End: 11-18-2023 [...] 02-27-2023 End: 02-27-2023 ambulatory RICHMOND PARNELL Facility:[facility] Start: 03-29-2021 End: 03-29-[address] RICHMOND PARNELL Facility: Start: 06-19-2018 End: 06-20-2018 Patient encounter procedure DEFAULT PHYSICIAN Facility:[facility] Start: 06-17-2018 End: 06-18-2018 Patient encounter procedure DEFAULT PHYSICIAN Facility:[facility] Procedures Date Procedure Procedure Detail Performing Clinician Start: 11-30-2024 ALL CBC WITH AUTO DIFF Deisy MENDIOLA Work Phone: Start: 04-09-2024 RECURRENT VAGINITIS (HTRX) Deisy MENDIOLA Work Phone: Start: 04-09-2024 End: 04-09-2024 Urnls dip stick/tablet rgnt non-auto w/o micrscp Deisy MENDIOLA Work Phone: Start: 11-18-2023 IGP,APTIMA HPV,AGE GDLN Deisy MENDIOLA Work Phone: Plan of Treatment Date Care Activity Detail Author Start: 12-06-2025 End: 12-06-2025 Patient encounter procedure 12/06/2025 3:00 PM EDT Procedure Visit [facility] [address] [place] [address] Deisy Wright PA [address] [place] [address] [facility] Start: 11-30-2024 End: 11-30-2024 [...] EST Office Visit [facility] [address] [place] [phone] Deisy Wright PA [address] [place] [address] Arrived [facility] Comment on above: Arrived Start: 11-18-2023 End: 11-18-2023 Patient encounter procedure 11/18/2023 4:00 PM EDT Office Visit [facility] [address] [place] [phone] Deisy Wright PA [address] [place], [place] [id number] Arrived [facility] Comment on above: Arrived CBC W Auto Different ial panel - Blood CBC and differential Lab Routine PCOS (polycystic ovarian syndrome) Ordered: 11/30/2024 [facility] Comment on above: Ordered: 11/30/2024 CHLAMYDIA TRACHOMATI S (GENITO/STI) CHLAMYDIA TRACHOMATIS (GENITO/STI) Lab Routine Vaginal discharge Ordered: 04/09/2024 [facility] Comment on above: Ordered: 04/09/2024 Cytology Cervical or vaginal smear or scraping study Pap Smear Pathology and Cytology Routine Well woman exam with routine gynecological exam Ordered: 11/18/2023 [facility] Work Phone: Comment on above: Ordered: 11/18/2023 Cytology Cervical or vaginal smear or scraping study Pap Smear Pathology and Cytology Routine Well woman exam with routine gynecological exam Ordered: 11/30/2024 [facility] Work Phone: Comment on above: Ordered: 11/30/2024 DHEA-sulfate DHEA-sulfate Lab Routine PCOS (polycystic ovarian syndrome) Ordered: 11/30/2024 [facility] Comment on above: Ordered: 11/30/2024 Follicle stimulating hormone Follicle stimulating hormone Lab Routine PCOS (polycystic ovarian syndrome) Ordered: 11/30/2024 [facility] Comment on above: Ordered: 11/30/2024 hCG, quantitative, hCG, quantitative, Lab Routine PCOS (polycystic ovarian syndrome) Ordered: 11/30/2024 [facility] Comment on above: Ordered: 11/30/2024 Hemoglobin A1c/Hemoglobin.total in Blood Hemoglobin A1c Lab Routine PCOS (polycystic ovarian syndrome) Ordered: 11/30/2024 [facility] Comment on above: Ordered: 11/30/2024 Luteinizing hormone Luteinizing hormone Lab Routine PCOS (polycystic ovarian syndrome) Ordered: 11/30/2024 [facility] Comment on above: Ordered: 11/30/2024 Neisseria gonorrhoea e DNA [Presence] in Unspecified specimen by CAROL with probe detection Neisseria gonorrhea DNA probe, direct Lab Routine Vaginal discharge Ordered: 04/09/2024 [facility] Comment on above: Ordered: 04/09/2024 SURESWAB(R) ADVANCED VAGINITIS PLUS, TMA SURESWAB(R) ADVANCED VAGINITIS PLUS, TMA Pathology and Cytology Routine Vaginal discharge Ordered: 04/09/2024 [facility] Work Phone: Comment on above: Ordered: 04/09/2024 Thyrotropin [Units/volume] in Serum or Plasma TSH Lab Routine PCOS (polycystic ovarian syndrome) Ordered: 11/30/2024 [facility] Comment on above: Ordered: 11/30/2024 Thyroxine (T4) free [Mass/volume] in Serum or Plasma T4, free Lab Routine PCOS (polycystic ovarian syndrome) Ordered: 11/30/2024 [facility] Comment on above: Ordered: 11/30/2024 Payers Date Payer Category Payer Private Health Insurance [employer] [id number] 2023 Unknown 2023 Unknown [id number] 2002 Unknown [id number] 2002 Unknown [id number] 2002 Unknown [id number] 2002 Unknown [id number] 1965 Unknown [id number] 1959 Private Health Insurance [id number] 1959 Unknown [id number] Social History Date Type Detail Facility Tobacco smoking stat [facility] Tobacco smoking consumption unknown [facility] Start: 2002 Sex assigned at Female [facility] Start: 10-08-2023 Gender identity Identifies as female gender (finding) [facility] Start: 10-08-2023 Sexual orientation Heterosexual (fin ding) [facility] History of Present illness Narrative 11-30-2024 [...] nursing note reviewed. Exam conducted with a formation fracturing operator present. Vitals: There is no height or [...] nursing note reviewed. Exam conducted with a formation fracturing operator present. Vitals: There is no height or [...] nursing note reviewed. Exam conducted with a formation fracturing operator present. Vitals: There is no height or [...] of: MARLENA Greer documented in this encounter [facility] Progress note 02-27-2023 Note Date & Type Note Facility 02-27-2023 Note HNO ID: [id number] Author: ANURADHA STRINGER, DO Service: ? Author Type: Physician Type: Progress Notes Filed: 03/27/2023 07:39 Note Text: [facility] Neurological [facility] for [facility] - Medical [...] lower left side of back, sharp pain. ([facility] 12/06/22). Now pain is up and down [...] Pain CERVICAL (more content not included)... [facility] Progress note 01-23-2023 Note Date & Type Note Facility 01-23-2023 Note HNO ID: [id number] Author: Chayito Hinton PA-C Service: ? Author Type: Physician Guard Lieutenant Type: Progress Notes Filed: 01/23/2023 9:52 PM [...] can be reviewed during the appt Chayito Hitnon PA-C [facility] Progress note 01-22-2023 Note Date & Type Note Facility 01-22-2023 Note HNO ID: [id number] Author: Jone Martin Service: ? Author Type: ? Type: Progress Notes Filed: 01/23/2023 9:52 PM Note Text: Patient name: Jannie Gu Are you being referred by a [place] for Spine Health Provider or Pain Management Provider at [facility]? No If answer is YES please schedule [...] the facility where the MRI/CT/myelogram was completed: [facility] Address: [address] [place] [address] MRI/CT/myelogram viewable in Epic: No If not, please provide [phone] to fax in imaging reports for review. [...] the surgery was completed: Additional Comments [facility] Evaluation note Note Date & Type Note Facility Evaluation note Diagnosis Well woman exam with routine gynecological exam Routine gynecological examination Encounter for surveillance of contraceptive pills documented in this encounter [facility] Evaluation note Note Date & Type Note Facility Evaluation note Diagnosis Vaginal discharge Leukorrhea, not specified as infective Vaginal itching Pruritus of genital organs Vaginal dryness Postmenopausal atrophic vaginitis documented in this encounter [facility] Evaluation note Note Date & Type Note Facility Evaluation note Diagnosis Well woman exam with routine gynecological exam Routine gynecological examination PCOS (polycystic ovarian syndrome) Polycystic ovaries documented in this encounter [facility] Summary Purpose Family History No Family History Records FoundNo Family History Records FoundNo Family History Records FoundNo Family History Records Found Advance Directives No Advanced Directives Records FoundNo Advanced Directives Records FoundNo Advanced Directives Records FoundNo Advanced Directives Records Found Additional Source Comments INFORMATION SOURCE (unrecogn ized section and content) DATE CREATED AUTHOR 06/20/2018 [facility] DATE CREATED AUTHOR AUTHOR'S ORGANIZ ATION 08/23/2021 [facility] DATE CREATED AUTHOR AUTHOR'S ORGANIZ ATION 03/28/2023 [facility] DATE CREATED AUTHOR AUTHOR'S ORGANIZ ATION 04/11/2024 [facility] dical Specialists [facility] Care Teams (unrecognized sec tion and content) Account Advisor Relationship Specialty Start Date End Date Richmond Parnell MD [address] [place] [phone] PCP - General Family Medicine 11/18/23 Account Advisor Relationship Specialty Start Date End Date Richmond Parnell MD [address] [facility] [place] [address] PCP - General Family Medicine 11/18/23 Account Advisor Relationship Specialty Start Date End Date Richmond Parnell MD [address] [facility] [place] [address] PCP - General Family Medicine 11/18/23 Account Advisor Relationship Specialty Start Date End Date Richmond Parnell MD [address] [facility] [place] [address] PCP - General Family Medicine 11/18/23 Account Advisor Relationship Specialty Start Date End Date Richmond Parnell MD [address] [facility] [place] [address] PCP - General Family Medicine 11/18/23 Account Advisor Relationship Specialty Start Date End Date Richmond Parnell MD [address] [facility] [place] [address] PCP - General Family Medicine 11/18/23 Account Advisor Relationship Specialty Start Date End Date Richmond Parnell MD [address] [facility] [place] [address] PCP - General Family Medicine 11/18/23 Account Advisor Relationship Specialty Start Date End Date Richmond Parnell MD [address] [facility] [place] [address] PCP - General Family Medicine 11/18/23 Reason [...] BE BASED ON THE PRIMARY CLINICAL RECORDS. [employer] [facility]. provides no warranty or guarantee of the accuracy or completeness of information in this document.
--- OUTSIDE RECORDS SUMMARY | 2024-11-30 21:16 | XMS_ITS | Encounter Summary ---
Author Organization [facility] Address [address] [place] [address] Care Team Providers Care Bow Maker Production Name Role Phone Vladimir Parnell MD Primary [...] PM EDT Procedure Visit [facility] [address] [place] [phone] Deisy Stewart PA [address] [place], [place] [id number] documented as of this encounter Visit Diagnoses Not on filedocumented in this encounter Care Teams Bow Maker Production Relationship Specialty Start Date End Date Vladimir Parnell MD [address] [facility] [place] [address] PCP - General Family Medicine 11/18/23 documented as of this encounter
--- OUTSIDE RECORDS SUMMARY | 2024-11-30 21:16 | XMS_ITS | Clinical Summary ---
Author Organization [facility] Address [address] [place] [address] Care Team Providers Care Process Artist Name Role Phone Vladimir Parnell MD Primary [...] Description 11/30/2024 3:00 PM EDT Office Visit [facility] [address] [place] [address] Deisy Stewart PA Well woman exam with routine gynecological exam; PCOS (polycystic ovarian syndrome) 11/30/2024 Clinisync Result Encounter [facility] External Department Unsolicited Deisy Stewart PA 11/30/2024 Bamboo flowsheet [facility] [address] [address] Deisy Stewart PA 11/23/2024 Travel from Last 3 [...] EDT Procedure Visit [facility] [address] [place] [phone] Deisy Stewart PA [address] [address] Procedures Procedure Name Priority Date/Time Associated Diagnosis Comments ALL THYROXINE (T4) FREE Routine 11/30/2024 3:58 PM EDT [facility] PREG QUANT HCG Routine 11/30/2024 3: 58 PM EDT ALL THYROID STIM HORMONE Routine 11/30/2024 3:58 PM EDT MLR HEMOGLOBIN A1C Routine 11/30/2024 3: 58 PM EDT ALL CBC WITH AUTO DIFF Routine 11/30/2024 3:58 PM EDT from Last 3 Months Results * [facility] PREG QUANT HCG (11/30/2024 3:58 PM EDT) HCG QUANTITATIVE <1 mIU/mL [facility] Comment: 5-50 0.2-1 WEEK 50-500 1-2 WEEKS 100-5,000 2-3 WEEKS 500-10,000 3-4 WEEKS 1,000-50,000 4-5 WEEKS 10,000-100,000 5-6 WEEKS 15,000-200,000 6-8 WEEKS 10,000-100,000 2-3 MONTHS 11/30/2024 3:58 PM EDT 11/30/2024 3:59 PM EDT Narrative CLINISYNC - 11/30/2024 4:54 PM EDT Deisy MENDES Final Result Performing Organization Address [facility]/ZIP Co de Phone Number CLINISYNC [facility] * MLR HEMOGLOBIN A1C (11/30/2024 3:58 PM EDT) Pathologist [facility] GLYCOHEMOGLOBIN A1C 4.8 4.5 - 6.2 % [facility] Comment: ADA RECOMMENDED LIMIT 4.0 - 6.0 ADA THERAPEUTIC TARGET < 7.0 ACTION SUGGESTED > 7.0 ESTIMATED AVERAGE GLUCOSE 91 mg/dL [facility] 11/30/2024 3:58 PM EDT 11/30/2024 3:59 PM EDT Narrative CLINISYNC - 11/30/2024 4:50 PM EDT Deisy MENDES Final Result Performing Organization Address [facility] Co de Phone Number CLINISYNC TB * ALL THYROXINE (T4) FREE (11/30/2024 3:58 PM EDT) [facility] FREE T4 0.83 0.76 - 1.46 ng/dL [facility] 11/30/2024 3:58 PM EDT 11/30/2024 3:59 PM EDT Narrative CLINISYNC - 11/30/2024 5:30 PM EDT Deisy EVANSISYCHAD Final Result Performing Organization Address [facility] Co de Phone Number CLINISYVT TB * ALL THYROID STIM HORMONE (11/30/2024 3:58 PM EDT) THYROID STIMULATING HORMONE 0.808 0.358 - 3.740 uIU/mL [facility] 11/30/2024 3:58 PM EDT 11/30/2024 3:59 PM EDT Narrative CRISTINAISYNC - 11/30/2024 4:54 PM EDT Deisy MENDIOLA CLINISYNC Final Result CLINISYNC TB * (ABNORMAL) ALL CBC WITH AUTO DIFF (11/30/2024 3:58 PM EDT) TB WBC 6.4 4.0 - 11.0 10 3/uL TBH TBH RBC 4.15(L) 4.20 - 5.40 10 6/uL TBH TBH HGB 13.1 12.0 - 16.0 g/dL TBH TBH HCT 38.3 36.0 - 48.0 % TBH TBH MCV 92.3 81.0 - 99.0 fL TBH TBH MCH 31.6 26.7 - 34.0 pg TBH TBH MCHC 34.2 29.9 - 35.2 g/dL TBH TBH RDW 11.8 11.0 - 15.0 % TBH TBH PLT 234 150 - 450 10 3/uL TBH TBH MPV 9.8 9.5 - 13.5 fL [facility]H NEUTROPHILS PERCENT AUTO 71.0 43.0 - 75.0 % TBH LYMPHOCYTES PERCENT AUTO 20.9 20.5 - 60.0 % TBH MONOCYTES PERCENT AUTO 5.9 1.7 - 12.0 % TBH TBH EO % 1.7 0.9 - 7.0 % TBH BASOPHILS PERCENT AUTO 0.5 0.2 - 2.0 % TBH IMMATURE GRANULOCYTES PCT AUTO 0.0 0.0 - 0.5 % TBH NEUTROPHILS ABSOLUTE AUTO 4.6 1.4 - 6.5 10 3/uL TBH LYMPHOCYTES ABSOLUTE AUTO 1.3 1.2 - 3.8 10 3/uL TBH MONOCYTES ABSOLUTE AUTO 0.4 0.3 - 0.8 10 3/uL TBH TBH EO # 0.1 0.0 - 0.7 10 3/uL TBH BASOPHILS ABSOLUTE AUTO 0.0 0.0 - 0.1 10 3/uL TBH IMMATURE GRANULOCYTES ABS AUTO 0.00 0.00 - 0.03 10 3/uL [facility]H 11/30/2024 3:58 PM EDT 11/30/2024 3:59 PM EDT Narrative CLINISYNC - 11/30/2024 4:35 PM EDT us Deisy MENDIOLA CLINISYNC Final Result CLINMARIUM [facility] from Last 3 Months Insurance [employer] Care Teams Process Artist Relationship Specialty Start Date End Date Vladimir Parnell MD [address] [place] [phone] PCP - General Family Medicine 11/18/23
--- OUTSIDE RECORDS SUMMARY | 2024-11-30 21:16 | XMS_ITS | Clinical Summary ---
Author Organization [facility] Address [address] [place], [place] [id number] Care Team Providers Care Hvac Project Manager Name Role Phone Unavailable Primary Care Provider [...] Vaccine (#1) 2024 0, 02/02/2019, 02/25/2017 Insurance [facility] [employer]
--- OUTSIDE RECORDS SUMMARY | 2024-11-30 21:17 | XMS_ITS | Encounter Summary ---
Author Organization [facility] Address [address] [place] [address] Care Team Providers Care Precision Instrument And Tool Maker Name Role Phone Vladimir Parnell MD Primary Care Provider [phone] Encounter Details Date Type Department Care Team (Late st Contact Info) Description 11/26/2023 Orders Only MEL[facility]SA CORE[facility] [address] [place] [address] [place] [phone] Cleo Lion MA [address] [place] [address] Social History Tobacco Use Types Packs/Day Years [...] PM EDT Procedure Visit [facility] [address] [place] [phone] Deisy Stewart PA [address] [place] [address] documented as of this encounter Procedures Procedure Name Priority Date/Time Associated Diagnosis Comments PAP SMEAR Routine 11/18/2023 12:00 AM EDT documented in this encounter Results * Pap Smear (11/18/2023 12:00 AM EDT) Swab Cervical swab / Unknown us Deisy MENDIOLA LAB CYTOLOGY ORDERABLES Final Re sult EXTERNAL LAB documented in this encounter Visit Diagnoses Not on filedocumented in this encounter Care Teams Precision Instrument And Tool Maker Relationship Specialty Start Date End Date Vladimir Parnell MD [address] [place] [address] PCP - General Family Medicine 11/18/23 documented as of this encounter
--- OUTSIDE RECORDS SUMMARY | 2024-11-30 21:17 | XMS_ITS | Patient Health Record ---
Author Organization [facility] [place] Address [address] [place] [address] Care Team Providers Care Advertising Statistical Clerk Name Role Phone Brent Stanley Primary Care Provider Allergies No Known Allergies Results Component Value Reference Range Notes CBC AUTO DIFF Reviewed date:12/14/2023 11:49:23 AM Interpretation: Performing Lab: Notes/Report: [facility] , White Blood Count 5.6 4.0-11.0 10 3/uL Red Blood Count 3.88 4.20-5.40 10 6/uL Hemoglobin 12.1 12.0-16.0 g/dL Hematocrit 36.1 36.0-48.0 % Mean Corpuscular Volume 93.0 81.0-99.0 fL Mean Corpuscular Hemoglobin 31.2 26.7-34.0 pg Mean Corpuscular HGB Conc 33.5 29.9-35.2 g/dL Red Cell Distribution Width 12.3 11.0-15.0 % Platelet Count 217 150-450 10 3/uL Mean Platelet Volume 9.6 9.5-13.5 fL Neutrophils Percent Auto 67.1 43.0-75.0 % Lymphocytes Percent Auto 27.5 20.5-60.0 % Monocytes Percent Auto 4.1 1.7-12.0 % Eosinophils Percent Auto 0.7 0.9-7.0 % Basophils Percent Auto 0.4 0.2-2.0 % Immature Granulocytes Pct Auto 0.2 0.0-0.5 % Neutrophils Absolute Auto 3.8 1.4-6.5 10 3/uL Lymphocytes Absolute Auto 1.5 1.2-3.8 10 3/uL Monocytes Absolute Auto 0.2 0.3-0.8 10 3/uL Eosinophils Absolute Auto 0.0 0.0-0.7 10 3/uL Basophils Absolute Auto 0.0 0.0-0.1 10 3/uL Immature Granulocytes Abs Auto 0.01 0.00-0.03 10 3/uL Performing Lab: see note - [facility] GLYCOHEMOGLOBIN A1C Reviewed date:12/14/2023 11:49:23 AM Interpretation: Performing Lab: Notes/Report: [facility] , Glycohemoglobin A1C 5.1 4.5-6.2 % ADA RECOMMENDED LIMIT 4.0 - 6.0 ADA THERAPEUTIC TARGET < 7.0 ACTION SUGGESTED > 7.0 Estimated Average Glucose 100 Performing Lab: see note - [facility] INSULIN Reviewed date:12/14/2023 11:49:23 AM Interpretation: Performing Lab: Notes/Report: [facility] , Insulin 14.6 2.6-24.9 uIU/mL Performed at: - [facility] [address] [id number] Case Management Manager: Christian Dunn PhD, Phone: [phone] Performing Lab: see note - [facility] LB IRON Reviewed date:12/14/2023 11:49:23 AM Interpretation: Performing Lab: Notes/Report: [facility] , Iron 55.0 50.0-170.0 ug/dL Performing Lab: see note - [facility] CA echo doppler complete Reviewed date:12/14/2023 11:49:23 AM Interpretation: Performing Lab: Notes/Report: Source Facility: [place] [address] [place] [address] Cardiology Report Signed Patient: JANNIE GU MR#: [id number] : 2000 Acct:[id number] Age/Sex: 23 / F ADM Date: 12/13/23 Loc: CARD Attending Dr: Richmond Stanley M.D. Ordering Physician: Richmond Stanley M.D. Date of Service: 12/13/23 Procedure(s): CA echo doppler complete Accession Number(s): [id number] cc: Richmond Stanley M.D. Patient Name: JANNIE GU MR#: [id number] : 2000 Exam Date: 12/13/2023 Ordering Doctor: DR Richmond Stanley . ECHOCARDIOGRAM REPORT PROCEDURE: CA ECHO DOPPLER COMPLETE INDICATIONS: Near syncope, vape COMPARISON: None. DESCRIPTION: COMPLETE ECHOCARDIOGRAM Real-time transthoracic echocardiography with 2D, M-mode, spectral and color flow Doppler performed. QUALITY: Technical quality was good. LEFT VENTRICLE: Normal chamber size. Normal left ventricular wall thickness. Normal systolic function. LV EF: Normal left ventricular ejection fraction, (>55%). DIASTOLIC: Normal diastolic function. ATRIAL SEPTUM: Visually appears intact. LEFT ATRIUM: Normal chamber size. RIGHT ATRIUM: Normal chamber size. RIGHT VENTRICLE: Normal chamber size. Normal right ventricular systolic function. TRICUSPID VALVE: Normal mobility and thickness. Trivial regurgitation. No evidence of pulmonary hypertension. MITRAL VALVE: Normal mobility and thickness. There is no mitral annular calcification. Trivial mitral regurgitation. AORTIC VALVE: Normal trileaflet appearance. No visible sclerosis. Normal leaflet mobility. No aortic regurgitation. AORTIC ROOT: Normal diameter and appearance. Ascending aorta is normal in size. PULMONIC VALVE: Normal thickness and mobility. Trivial regurgitation. PERICARDIUM: No evidence of pericardial effusion. IVC: Collapses with inspirations. PLEURA: CONCLUSION: 1. Normal ventricular size and function. LVEF is estimated at 60 to 65%. 2. Normal valvular function. 3. No pericardial effusion. Adult Echocardiography Procedure Report Left Ventricle LVEDD (3.7 - 5.6 cm): 4.04 cm LVESD (2.2 - 4.0 cm): 2.65 cm LVIVS thickness (0.6 - 1.2 cm): 0.79 cm LVPW thickness (0.5 - 1.0 cm): 0.76 cm e': 0.22 m/s E - e': 4.87 LVOT Max Gradient: 7.15 mm[Hg] LVOT Area (cm2): 1.34 m/s Peak Velocity (LVOT): 1.34 m/s Mean Velocity (LVOT): 0.84 m/s LVOT Diameter 2.13 cm Left Atrium LA Volume Index (2D A2C): 20.67 ml/m2 Left Atrium Systolic Dimension: 3.08 cm Mitral Valve MV E to A Ratio: 2.77 Mitral Valve A-Wave Peak Velocity: 0.39 m/s Mitral Valve E-Wave Peak Velocity: 1.07 m/s Right Ventricle Aorta AO Root Diam: 2.63 cm Ascending Ao Diam: 2.23 cm Aortic Valve AoV Area (Peak Jh): 3.66 cm2, 3.66 cm2 AoV Area (VTI): 3.43 cm2, 3.43 cm2 Peak Velocity(Antegrade Flow): 1.30 m/s Peak Gradient(Antegrade Flow): 6.77 mm[Hg] Mean Velocity(Antegrade Flow): 0.83 m/s Mean Gradient(Antegrade Flow): 3.33 mm[Hg] Velocity Time Integral: 25.19 cm Tricuspid Valve Peak Velocity (Regurgitant Flow): 1.81 m/s Pulmonic Valve Mean Gradient: 3.59 mm[Hg], 3.79 mm[Hg], 4.31 mm[Hg], 4.02 mm[Hg] Mean Velocity: 0.87 m/s, 0.91 m/s, 0.97 m/s, 0.94 m/s Peak Gradient: 7.03 mm[Hg], 7.03 mm[Hg], 7.03 mm[Hg], 7.03 mm[Hg] Right Atrium Right Atrium Systolic Pressure: 29.55 ml, 29.55 ml Dictated by: Sydnie Avitia M.D. on 12/13/2023 at 16:19 Approved by: Sydnie Avitia M.D. on 12/13/2023 at 16:22 Dictated By: SYDNIE AVITIA Signed By: 12/13/23 1623 DD/ 1622 TD/TT: Aircraft Load Controller: XR lumbar spine min 4V Reviewed date:07/20/2024 02:03:11 PM Interpretation: Performing Lab: Notes/Report: Source Facility: [facility] [place] [address] [place] [address] XRay Report Signed Patient: JANNIE GU MR#: [id number] : 2000 Acct:[id number] Age/Sex: 23 / F ADM Date: 07/20/24 Loc: RAD Attending Dr: Richmond Stanley M.D. Ordering Physician: Richmond Stanley M.D. Date of Service: 07/20/24 Procedure(s): XR lumbar spine min 4V Accession Number(s): [id number] cc: Richmond Stanley M.D. [facility] [place] [address] Patient Name: JANNIE GU MRN: [id number] date: 2000 Sex: F Assigned Patient Location: [facility] Current Patient Location: [facility] Accession/Order Number: [id number] Exam Date: 07/20/2024 13:09 Report Date: 07/20/2024 13:14 At the request of: RICHMOND STANLEY MD Procedure: XR lumbar spine min 4V LUMBAR SPINE -4 views: CLINICAL HISTORY: Chronic low back pain. No injury. COMPARISON: 11/28/2022 AP, lateral and both oblique views of the lumbosacral junction were obtained. 6 nonrib-bearing lumbar type vertebra are again seen. Prior chest x-ray shows 12 sets of normal ribs. There is no evidence of fracture. Alignment is maintained on the lateral view. No disproportionate disc space narrowing is present. No hypertrophy is seen. No pars defect is identified. The sacroiliac joints are maintained. There are no paraspinal soft tissue abnormalities. XR/XR lumbar spine min 4V IMPRESSION: TRANSITIONAL VERTEBRA. NO ACUTE BONY FINDINGS Impression dictated by: Mary Kay Bianchi M.D. 07/20/2024 1:14 PM Dictation Location: [place] [address] Electronically authenticated by: [id number] Y Date: 07/20/2024 13:14 Dictated By: Mary Kay Bianchi M.D. Signed By: 07/20/24 1317 DD/ 1314 TD/TT: Aircraft Load Controller: CBC AUTO DIFF Reviewed date:11/30/2024 08:43:14 PM Interpretation: Performing Lab: Notes/Report: [facility] , White Blood Count 6.4 4.0-11.0 10 3/uL Red Blood Count 4.15 4.20-5.40 10 6/uL Hemoglobin 13.1 12.0-16.0 g/dL Hematocrit 38.3 36.0-48.0 % Mean Corpuscular Volume 92.3 81.0-99.0 fL Mean Corpuscular Hemoglobin 31.6 26.7-34.0 pg Mean Corpuscular HGB Conc 34.2 29.9-35.2 g/dL Red Cell Distribution Width 11.8 11.0-15.0 % Platelet Count 234 150-450 10 3/uL Mean Platelet Volume 9.8 9.5-13.5 fL Neutrophils Percent Auto 71.0 43.0-75.0 % Lymphocytes Percent Auto 20.9 20.5-60.0 % Monocytes Percent Auto 5.9 1.7-12.0 % Eosinophils Percent Auto 1.7 0.9-7.0 % Basophils Percent Auto 0.5 0.2-2.0 % Immature Granulocytes Pct Auto 0.0 0.0-0.5 % Neutrophils Absolute Auto 4.6 1.4-6.5 10 3/uL Lymphocytes Absolute Auto 1.3 1.2-3.8 10 3/uL Monocytes Absolute Auto 0.4 0.3-0.8 10 3/uL Eosinophils Absolute Auto 0.1 0.0-0.7 10 3/uL Basophils Absolute Auto 0.0 0.0-0.1 10 3/uL Immature Granulocytes Abs Auto 0.00 0.00-0.03 10 3/uL Performing Lab: see note ML - [facility] FREE T4 Reviewed date:11/30/2024 08:43:15 PM Interpretation: Performing Lab: Notes/Report: [facility] , Free T4 0.83 0.76-1.46 ng/dL Performing Lab: see note ML - [facility] LB GLYCOHEMOGLOBIN A1C Reviewed date:11/30/2024 08:43:15 PM Interpretation: Performing Lab: Notes/Report: [facility] , Glycohemoglobin A1C 4.8 4.5-6.2 % ADA RECOMMENDED LIMIT 4.0 - 6.0 ADA THERAPEUTIC TARGET < 7.0 ACTION SUGGESTED > 7.0 Estimated Average Glucose 91 Performing Lab: see note ML - [facility] PREG QUANT HCG Reviewed date:11/30/2024 08:43:15 PM Interpretation: Performing Lab: Notes/Report: [facility] , HCG Quantitative <1 5-50 0.2-1 WEEK 50-500 1-2 WEEKS 100-5,000 2-3 WEEKS 500-10,000 3-4 WEEKS 1,000-50,000 4-5 WEEKS 10,000-100,000 5-6 WEEKS 15,000-200,000 6-8 WEEKS 10,000-100,000 2-3 MONTHS Performing Lab: see note ML - The [facility] LB TSH Reviewed date:11/30/2024 08:43:15 PM Interpretation: Performing Lab: Notes/Report: [facility] , Thyroid Stimulating Hormone 0.808 0.358-3.740 u IU/mL Performing Lab: see note ML - [facility] LB TSH Reviewed date:12/14/2023 11:49:23 AM Interpretation: Performing Lab: Notes/Report: [facility] , Thyroid Stimulating Hormone 0.922 0.358-3.740 u IU/mL Performing Lab: see note ML - The [facility] LB T4 Reviewed date:12/14/2023 11:49:23 AM Interpretation: Performing Lab: Notes/Report: [facility] , T4 Thyroxine 7.10 4.80-13.90 ug/dL Performing Lab: see note ML - [facility] LB LIPID PROFILE Reviewed date:12/14/2023 11:49:23 AM Interpretation: Performing Lab: Notes/Report: [facility] , Triglycerides 91 <=150 mg/dL Cholesterol 170 <=200 mg/dL HDL Cholesterol 55 40-60 mg/dL > or =60 mg/dl - LOW CARDIOVASCULAR RISK <40 mg/dl - HIGH CARDIOVASCULAR RISK LDL Cholesterol Calculated 96.8 <100 mg/dl OPTIMAL 100-129 mg/dl NEAR OR ABOVE OPTIMAL 130-159 mg/dl BORDERLINE HIGH 160-189 mg/dl HIGH >190 mg/dl VERY HIGH VLDL CHOLESTEROL 18.2 Chol HDL Ratio 3.1 3.3 - 4.4 LOW RISK 4.4 - 7.1 AVERAGE RISK 7.1 - 11.0 MODERATE RISK >11.0 HIGH RISK Performing Lab: see note ML - [facility] LB FREE T3 Reviewed date:12/14/2023 11:49:23 AM Interpretation: Performing Lab: Notes/Report: [facility] , Free T3 2.47 2.18-3.98 pg/mL Performing Lab: see note ML - [facility] LB PROF 14(COMP METB) Reviewed date:12/14/2023 11:49:23 AM Interpretation: Performing Lab: Notes/Report: [facility] , Sodium 138 136-145 mmol/L Potassium 3.5 3.5-5.1 mmol/L Chloride 105 98-107 mmol/L Carbon Dioxide 22.1 21.0-32.0 mmol/L Anion Gap 14.4 Glucose 105 74-106 mg/dL Blood Urea Nitrogen 14.0 7.0-18.0 mg/dL Creatinine 0.81 0.55-1.02 mg/dL Estimated GFR ( Bouchra >60 >=60 mL/min/1.73m 2 Estimated GFR (Non- Yaneli >60 >=60 mL/min/1.73m 2 BUN Creatinine Ratio 17.3 Calcium 8.7 8.5-10.1 mg/dL Bilirubin Total 0.2 0.2-1.0 mg/dL Aspartate Amino Transferase 24 15-37 U/L Alanine Aminotransferase 50 14-59 U/L Alkaline Phosphatase 54 46-116 U/L Total Protein 6.6 6.4-8.2 g/dL Albumin Level 3.5 3.4-5.0 g/dL Globulin 3.1 Albumin Globulin Ratio 1.1 Performing Lab: see note ML - The [facility] LB Reason For Referral Diagnosis 1 Low back pain at [facility] (M54.50) Referral Organization [facility] Referring Provider First Name Brent Referring Provider Last Name Parmjit Referring Provider Speciality [facility] icine Referred Provider TB, Physical Therap y Referred Provider Specialty Physical The rapist Referral Priority Routine Medications Medication SIG (Take, Route, Fr equency, Duration) Notes Start Date End Date Status Baclofen 20 MG 1-2 tabs Orally qhs 03/26/2024 Active Meloxicam 15 MG 1 tablet Orally Once a day; Duration: 90 days 03/26/2024 Active Social History Tobacco Use: Social History Observation Description Date Details (start date - stop date) Never Smoker NA - NA Tobacco Use/Smoking Question Answer Notes Patient is a nonsmoker Additional Findings: Tobacco Non-User Current no n-smoker Alcohol Screen (Audit-C) Question Answer Notes Did you have a drink containing alcohol in the p ast year? No Points 0 Interpretation Negative Sexual History Question Answer Notes Had sex in the past 12 months (vaginal, oral, or anal)? Yes AUDIT-C (Standard) Question Answer Notes Did you have a drink contain ing alcohol in the past year? Yes How often did you have six o r more drinks on one occasion in the past year? Less than monthly (1 point) How many drinks did you have on a typical day when you were drinking in the past year? 3 or 4 drinks (1 point) How often did you have a dri nk containing alcohol in the past year? 2 to 4 times a month (2 points) Points 4 Interpretation Positive Problems Problem Type SNOMED Code ICD Code Onset Dates Problem Status W/U Status Risk Notes Problem Depression (221836082) Depression (F32.9) Active confirmed Problem Bipolar 1 disorder (105775773) Bipolar 1 disorder (F31.9) Active confirmed Problem Migraine (98412186) Migraine (G43.909) Active confirmed Problem Well adult (792172932) Well adult (Z00.00) Active confirmed Problem Near syncope (097096358) Near syncope (R55) Active confirmed Problem Chest wall pain (165885981) Chest wall pain (R07.89) Active confirmed Problem Low back pain (finding) (639742959) Low back pain at multiple sites (M54.50) Active confirmed Vital Signs Blood pressure diastolic 64 mm Hg 03/23/2024 Height 65 in 03/23/2024 Blood pressure systolic 120 mm Hg 03/23/2024 Weight 188.6 lbs 03/23/2024 BMI 31.38 kg/m2 03/23/2024 Procedures Procedure Date Ordered Date Performed Result Body Sit e CARDIO Echocardiogram 12/05/2023 N/A Encounters Encounter Location Date Provider Diagnosis [facility] [address] [place] [address] 12/05/2023 Brent Hoy Near syncope R55 ; W ell adult Z00.00 ; Migraine G43.909 ; Bipolar 1 disorder F31.9 and Chest wall pain R07.89 [facility] [address] [place] [address] 03/23/2024 Brent Hoy Low back pain at multiple sites M54.50 [facility] [address] [place] [address] 12/05/2023 Brent Hoy Dietary counseling a nd surveillance Z71.3 [facility] [address] [place] [address] 12/09/2023 Brent Hoy Near syncope R55 [facility] [address] [place] [address] 12/14/2023 Brent Jhony [facility] [address] [place] [address] 03/26/2024 Brent Hoy Chest wall pain R07. 89 and Low back pain at multiple sites M54.50 [facility] [address] [place] [address] 05/14/2024 Brent Ferreiray [facility] [address] [place] [address] 07/20/2024 Brent Hoy Low back pain at multiple sites M54.50 Assessments Encounter Date Diagnosis (ICD Code) Assessment Notes Treatment Notes Treatment Clinical Notes Section Notes 03/23/2024 Low back pain at multiple sites (ICD-10 - M54.50) 12/05/2023 Dietary counseling and surveillance (ICD-10 - Z71.3) 12/09/2023 Near syncope (ICD-10 - R55) 03/26/2024 Chest wall pain (ICD-10 - R07.89) 12/05/2023 Well adult (ICD-10 - Z00.00) 12/05/2023 Near syncope (ICD-10 - R55) needs echo 07/20/2024 Low back pain at multiple sites (ICD-10 - M54.50) 12/05/2023 Migraine (ICD-10 - G43.909) may need FMLA for this 03/26/2024 Low back pain at multiple sites (ICD-10 - M54.50) 12/05/2023 Bipolar 1 disorder (ICD-10 - F31.9) stable 12/05/2023 Chest wall pain (ICD-10 - R07.89) see above 03/23/2024 Other Recommended to rest and use a heating pad on the area. Take NSAIDs for pain as needed Plan Of Treatment Pending Test Test Name Order Date CMP (COMPLETE METABOLIC PANEL) 3 CMP (COMPLETE METABOLIC PANEL) 4 HEMOGLOBIN A1C (GLYCO) 12/05/2023 HEMOGLOBIN A1C (GLYCO) 12/06/2022 IRON, TOTAL 12/05/2023 LIPID PANEL (CHOL/TRIG/HDL/LDL) 12/05/19 24 LIPID PANEL (CHOL/TRIG/HDL/LDL) 12/07/19 23 CBC WITH DIFF 12/06/2022 CBC WITH DIFF 12/05/2023 XR Chest PA and Lateral (Routine CXR) * 05/29/2023 CARDIO Echocardiogram 12/05/2023 Insulin Level 12/06/2022 Insulin Level 12/05/2023 STOOL OCCULT BLOOD 12/05/2023 MRI LSPINE WO CON 12/06/2022 XR LSPINE 2_3 VIEWS 12/06/2022 XR LSPINE MIN 4 VIEWS 03/23/2024 THYROID PANEL (T4/TSH/FREE T3) 4 THYROID PANEL (T4/TSH/FREE T3) 3 Insurance Providers Payer Name Payer Address Payer Phone Subscriber Number Group Number Insured Name Patient Relationship to Insured Coverage Start Date Coverage End Date [employer] [address] [address] [place] [address] [id number] Jannie Gu Self - patient is the insured Medications Administered Medication Instructions Date of Administration Dosage Notes Ketorolac Tromethamine 03/23/2024 60 mg Triamcinolone 40 mg/ml 03/23/2024 80 mg Medical (General) History Surgical History Surgery Date(Month/Year)
--- OUTSIDE RECORDS SUMMARY | 2024-11-30 21:17 | XMS_ITS | Clinical Summary ---
Author Organization [facility] tem Address [id number] [address] [place] [address] Care Team Providers Care Instructor [employer] Name Role Phone Vladimir Parnell MD Primary [...] 02/25/2017 Medical Devices Not on file Insurance [employer] [place] [employer] [place] [employer] Care Teams Instructor [employer] Relationship Specialty Start Date End Date Vladimir Parnell MD PCP - General 09/15/16
--- OUTSIDE RECORDS SUMMARY | 2024-11-30 21:17 | XMS_ITS | Encounter Summary ---
Author Organization [facility] Address [address] [place] [address] Care Team Providers Care Public Health Officer Name Role Phone Vladimir Parnell MD Primary Care Provider [phone] Encounter Details Date Type Department Care Team (Late st Contact Info) Description 11/30/2024 Clinisync Result Encounter [facility] Department Unsolicited Deisy Stewart PA [address] [place] [address] Social History Tobacco Use Types Packs/Day Years [...] 3:00 PM EDT Procedure Visit [facility] [address] [place] [id number] Deisy Stewart PA [address] [place] [address] documented as of this encounter Procedures Procedure Name Priority Date/Time Associated Diagnosis Comments [facility] PREG QUANT HCG Routine 11/30/2024 3: 58 PM EDT MLR HEMOGLOBIN A1C Routine 11/30/2024 3: 58 PM EDT ALL THYROXINE (T4) FREE Routine 11/30/2024 3:58 PM EDT ALL THYROID STIM HORMONE Routine 11/30/2024 3:58 PM EDT ALL CBC WITH AUTO DIFF Routine 11/30/2024 3:58 PM EDT documented in this encounter Results * ALL THYROXINE (T4) FREE (11/30/2024 3:58 PM EDT) FREE T4 0.83 0.76 - 1.46 ng/dL TB 11/30/2024 3:58 PM EDT 11/30/2024 3:59 PM EDT Narrative CLINISYNC - 11/30/2024 5:30 PM EDT Deisy MENDES Final Result Performing Organization Address City/[facility]/ZIP Co de Phone Number * TBH PREG QUANT HCG (11/30/2024 3:58 PM EDT) HCG QUANTITATIVE <1 mIU/mL TBH Comment: 5-50 0.2-1 WEEK 50-500 1-2 WEEKS 100-5,000 2-3 WEEKS 500-10,000 3-4 WEEKS 1,000-50,000 4-5 WEEKS 10,000-100,000 5-6 WEEKS 15,000-200,000 6-8 WEEKS 10,000-100,000 2-3 MONTHS 11/30/2024 3:58 PM EDT 11/30/2024 3:59 PM EDT Narrative CLINISYNC - 11/30/2024 4:54 PM EDT Deisy MENDES Final Result Performing Organization Address City/[facility]/ZIP Co de Phone Number * ALL THYROID STIM HORMONE (11/30/2024 3:58 PM EDT) THYROID STIMULATING HORMONE 0.808 0.358 - 3.740 uIU/mL TBH 11/30/2024 3:58 PM EDT 11/30/2024 3:59 PM EDT Narrative CLINISYNC - 11/30/2024 4:54 PM EDT Deisy EVANSISYNC Final Result Performing Organization Address City/[facility]/ZIP Co de Phone Number [facility] * MLR HEMOGLOBIN A1C (11/30/2024 3:58 PM EDT) [facility] GLYCOHEMOGLOBIN A1C 4.8 4.5 - 6.2 % [facility] Comment: ADA RECOMMENDED LIMIT 4.0 - 6.0 ADA THERAPEUTIC TARGET < 7.0 ACTION SUGGESTED > 7.0 ESTIMATED AVERAGE GLUCOSE 91 mg/dL TB 11/30/2024 3:58 PM EDT 11/30/2024 3:59 PM EDT Narrative CLINISYNC - 11/30/2024 4:50 PM EDT Deisy MENDES Final Result Performing Organization Address [facility] de Phone Number [facility] * (ABNORMAL) ALL CBC WITH AUTO DIFF (11/30/2024 3:58 PM EDT) [facility] TB WBC 6.4 4.0 - 11.0 10 3/uL TBH TB RBC 4.15(L) 4.20 - 5.40 10 6/uL TBH TB HGB 13.1 12.0 - 16.0 g/dL TB TB HCT 38.3 36.0 - 48.0 % TB TB MCV 92.3 81.0 - 99.0 fL TB TB MCH 31.6 26.7 - 34.0 pg TBH TB MCHC 34.2 29.9 - 35.2 g/dL TB TB RDW 11.8 11.0 - 15.0 % TBH TB PLT 234 150 - 450 10 3/uL TB TB MPV 9.8 9.5 - 13.5 fL TB NEUTROPHILS PERCENT AUTO 71.0 43.0 - 75.0 [...] Narrative CLINISYNC - 11/30/2024 4:35 PM EDT Deisy MENDIOLA CLINISYNC Final Result documented in this encounter Visit Diagnoses Not on filedocumented in this encounter Care Teams Public Health Officer Relationship Specialty Start Date End Date Vladimir Parnell MD [address] [place] [address] PCP - General Family Medicine 11/18/23 documented as of this encounter
== END 2024-11-30 21:14 | disposition home or self-care (01) ==
LOC: LAB 21:13
PROVIDERS: PCP Family Medicine; Visit Provider Physician Assistant
DX: Z01.419 Encounter for gynecological examination (general) (routine) without abnormal findings (principal)
CPT/HCPCS: 88175